=== PATIENT | female | born 1995 | race Caucasian/White ===

== ENCOUNTER 2019-01-15 14:40 | Emergency (ER) | payer SELFPAY ==
[2019-01-15] MEDS ORDERED: ONDANSETRON 4 MG/2 ML VIAL ONE (17:03)
[2019-01-15] MEDS ORDERED: FAMOTIDINE 20 MG/2 ML VIAL IV ONE (17:03)
[2019-01-15] MEDS ORDERED: MAGNE/ALUM HYDROXD 30 ML UCUP ONE (17:03)
[2019-01-15] MEDS ORDERED: LIDOCAINE VISCOUS 2% SOLN 15 ML UDC ONE (17:03)
[2019-01-15] MEDS ORDERED: METRONIDAZOLE 500mg IVPB 500 MG/100 ML BAG IV ONE (17:03)
[2019-01-15] MEDS ORDERED: ACETAMINOPHEN 500 MG TAB ONE (17:03)
[2019-01-15] MEDS ORDERED: NA CHLORIDE 0.9% 1,000 ML ONE (17:04)
[2019-01-15 17:29] LABS: Absolute Lymphocytes (CBC) 0.7 K/uL (0.7-4.9); Absolute Monocytes 0.6 K/uL (0.1-1.3); Absolute Neutrophil 3.5 K/uL (1.8-8.0); Basophils % 0.3 % (0-1.3); Eosinophils % 0.6 % (0-4.4); Hematocrit 39.3 % (36.0-45.0); Lymphocytes % 14.5 % (15.3-44.8); MPV 7.9 fL (7.6-11.3); RBC Red Blood Cell Count 4.96 M/uL (3.86-4.86)
[2019-01-15 17:47] LABS: Albumin 3.4 g/dL (3.4-5.0); Bilirubin Direct 0.2 mg/dL (0-0.2); Bilirubin Total 0.4 mg/dL (0.2-1.0); Potassium 3.4 mmol/L (3.5-5.1); Protein, Total 7.8 g/dL (6.4-8.2)
--- NOTE | 2019-01-15 18:43 | RAD REPORT ---
EXAM DESCRIPTION: US - Abdomen Exam Limited - 01/15/2019 6:36 pm CLINICAL HISTORY: RUQ Abdominal pain COMPARISON: No comparisons FINDINGS: The gallbladder demonstrates 6 mm polyp along the anterior aspect gallbladder. No shadowin g gallstone identified. No pericholecystic fluid or gallbladder wall thickening. The common bile duct is normal measuring 3 mm. The liver demonstrates no findings of intrahepatic biliary dilatation. IMPRESSION: 6 mm gallbladder polyp.
--- NOTE | 2019-01-15 19:12 | EDPHYS ---
Physician Documentation [facility] Name: Melody Maldonado Age: 23 yrs Sex: Female : 1995 Arrival Date: 01/15/2019 Time: 14:42 Bed 27 Private MD: Unknown, Unknown ED Physician Katiuska Stearns HPI: 01/15 16:48 This 23 yrs old Female presents to ER via Ambulatory with complaints of ma2 Nausea/Vomiting, Bloody Stools, Abdominal Cramping. 16:48 The patient presents to the emergency department with nausea, vomiting, diarrhea. ma2 Onset: The symptoms/episode began/occurred gradually, 3 day(s) ago. The symptoms are alleviated by food , supine position, prescription meds. Associated signs and symptoms: Pertinent negatives: diarrhea, fever. Severity of symptoms: At their worst the symptoms were mild in the emergency department the symptoms are unchanged. The patient has not experienced similar symptoms in the past. 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 - Social history:: Smoking status: Patient/guardian denies using tobacco, Patient uses Patient/guardian denies using alcohol, street drugs, The patient lives with family. - Ebola Screening: : No symptoms or risks identified at this time. - Family history:: not pertinent. ROS: 16:48 Constitutional: Negative for fever, chills, and weight loss. ma2 16:48 Abdomen/GI: Positive for nausea, vomiting, and diarrhea, Negative for constipation, bowel incontinence, acute changes. 16:48 All other systems are negative. Exam: 16:48 Constitutional: This is a well developed, well nourished patient who is awake, alert, ma2 and in no acute distress. Chest/axilla: Normal chest wall appearance and motion. Nontender with no deformity. No lesions are appreciated. Cardiovascular: Regular rate and rhythm with a normal S1 and S2. No gallops, murmurs, or rubs. Normal PMI, no JVD. No pulse deficits. Respiratory: Lungs have equal breath sounds bilaterally, clear to auscultation and percussion. No rales, rhonchi or wheezes noted. No increased work of breathing, no retractions or nasal flaring. Abdomen/GI: Soft, non-tender, with normal bowel sounds. No distension or tympany. No guarding or rebound. No evidence of tenderness throughout. MS/ Extremity: Pulses equal, no cyanosis. Neurovascular intact. Full, normal range of motion. Neuro: Awake and alert, GCS 15, oriented to person, place, time, and situation. Cranial nerves II-XII grossly intact. Motor strength 5/5 in all extremities. Sensory grossly intact. Cerebellar exam normal. Normal gait. Vital Signs: 14:53 BP 122 / 71; Pulse 101; Resp 16; Temp 98.9; Pulse Ox 99% on R/A; Pain 7/10; hb 15:42 BP 110 / 69; Pulse 102; Resp 19; Pulse Ox 100% on R/A; ca1 16:45 BP 109 / 72; Pulse 99; Resp 19; Pulse Ox 99% on R/A; ca1 17:30 BP 105 / 69; Pulse 95; Resp 19; Pulse Ox 99% on R/A; ca1 18:42 BP 98 / 61; Pulse 93; Resp 16; Temp 98.9; Pulse Ox 100% ; lt1 19:20 BP 102 / 65; Pulse 90; Resp 19; Pulse Ox 99% on R/A; ca1 MDM: 16:40 Patient medically screened. [facility] 16:48 Differential diagnosis: gastritis, cholecystitis, viral gastroenteritis, ma2 gastroenteritis. 19:10 Data reviewed: vital signs, nurses notes. [facility] 19:10 Data reviewed: lab test result(s). Counseling: I had a detailed discussion with the ky2 patient and/or guardian regarding: the historical points, exam findings, and any diagnostic results supporting the discharge/admit diagnosis, the presence of at least one elevated blood pressure reading (>120/80) during this emergency department visit, the need for outpatient follow up. Response to treatment: the patient's symptoms have markedly improved after treatment. ED course: low risk pancreatitis per kristan score needs outpatient rx. 01/15 16:48 Order name: Basic Metabolic Panel; Complete Time: 17:52 [facility] 01/15 16:48 Order name: CBC with Diff; Complete Time: 17:52 [facility] 01/15 16:48 Order name: Creatinine for Radiology; Complete Time: 17:52 [facility] 01/15 16:48 Order name: Hepatic Function; Complete Time: 17:52 [facility] 01/15 16:48 Order name: Lipase; Complete Time: 17:52 [facility] 01/15 16:48 Order name: Stool Culture [facility] 01/15 16:48 Order name: Fecal Leukocyte Stain [facility] 01/15 16:48 Order name: CDIFF [facility] 01/15 17:54 Order name: US Abdomen Limited; Complete Time: 19:10 [facility] 01/15 18:53 Order name: Urine Dipstick--Ancillary (enter results) 01/15 18:53 Order name: Urine --Ancillary (enter results) 01/15 16:48 Order name: IV Saline Lock; Complete Time: 17:00 [facility] 01/15 16:48 Order name: Labs collected and sent; Complete Time: 17:00 ky2 Administered Medications: 16:52 Drug: Tylenol 1000 mg Route: PO; ca1 19:09 Follow up: Response: No adverse reaction ca1 16:52 Drug: GI Cocktail without - (Maalox Suspension 30 ml, Lidocaine Liquid 2 % 15 ca1 ml) Route: PO; 19:10 Follow up: Response: No adverse reaction; Pain is decreased ca1 16:55 Drug: NS 0.9% 1000 ml Route: IV; Rate: 1 bolus; Site: right antecubital; ca1 19:09 Follow up: IV Status: Completed infusion ca1 16:58 Drug: Pepcid 20 mg Route: IVP; Site: right antecubital; ca1 19:09 Follow up: Response: No adverse reaction ca1 17:00 Drug: Zofran 4 mg Route: IVP; Site: right antecubital; ca1 19:09 Follow up: Response: No adverse reaction; Nausea is decreased ca1 17:30 Drug: Flagyl 500 mg Volume: 100 ml; Route: IVPB; Rate: 200 ml/hr; Infused Over: 30 ca1 mins; Site: right antecubital; Disposition: 01/15/19 19:11 Discharged to Home. Impression: Acute pancreatitis. - Condition is Stable. - Discharge Instructions: Acute Pancreatitis. - Prescriptions for Tylenol- Codeine #3 300-30 mg Oral Tablet - take 2 tablet by ORAL route every 6 hours As needed; 30 tablet. - Medication Reconciliation Form, Thank You Letter, Antibiotic Education, Prescription Opioid Use form. - Follow up: Private Physician; When: Tomorrow; Reason: Continuance of care. Signatures: Dispatcher [employer] Ruma Lyon, RN RN Katiuska Austin MD MD ma2 Marti Hernandez RN RN ca1 Corrections: (The following items were deleted from the chart) 19:35 19:11 01/15/2019 19:11 Discharged to Home. Impression: Acute pancreatitis. Condition is ca1 Stable. Forms are Medication Reconciliation Form, Thank You Letter, Antibiotic Education, Prescription Opioid Use. Follow up: Private Physician; When: Tomorrow; Reason: Continuance of care. ma2
--- NOTE | 2019-01-15 19:12 | ER ---
Nurse's Notes [facility] Name: Melody Maldonado Age: 23 yrs Sex: Female : 1995 Arrival Date: 01/15/2019 Time: 14:42 Bed 27 Private MD: Unknown, Unknown Diagnosis: Acute pancreatitis Presentation: 01/15 14:52 Presenting complaint: N/V/D x 3 days, blood streaked diarrhea today. Not tolerating hb fluids. Denies fever. Transition of care: patient was not received from another setting of care. Onset of symptoms was January 15, 2019. Risk Assessment: Do you want to hurt yourself or someone else? Patient reports no desire to harm self or others. Care prior to arrival: None. 14:52 Method Of Arrival: Ambulatory hb 14:52 Acuity: ERICH 3 hb 16:50 Initial Sepsis Screen: Does the patient meet any 2 criteria? No. Patient's initial ca1 sepsis screen is negative. Does the patient have a suspected source of infection? Yes: Acute abdominal pain. 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 - Social history:: Smoking status: Patient/guardian denies using tobacco, Patient uses Patient/guardian denies using alcohol, street drugs, The patient lives with family. - Ebola Screening: : No symptoms or risks identified at this time. - Family history:: not pertinent. Screenin:40 Abuse screen: Denies threats or abuse. Denies injuries from another. Nutritional ca1 screening: No deficits noted. Tuberculosis screening: No symptoms or risk factors identified. 16:40 Fall Risk IV access (20 points). ca1 Assessment: 16:40 General: Appears in no apparent distress. comfortable, Behavior is calm, cooperative, ca1 appropriate for age. Pain: Complains of pain in right upper quadrant and right lower quadrant Pain radiates to right mid back and right low back Pain currently is 7 out of 10 on a pain scale. Quality of pain is described as aching, crampy. Neuro: Level of Consciousness is awake, alert, obeys commands, Oriented to person, place, time, situation. Cardiovascular: Heart tones S1 S2 present Capillary refill < 3 seconds Patient's skin is warm and dry. Respiratory: Airway is patent Respiratory effort is even, unlabored, Respiratory pattern is regular, symmetrical, Breath sounds are clear bilaterally. GI: Abdomen is round non-distended, Bowel sounds present X 4 quads. Abd is soft X 4 quads Abdomen is tender to palpation X 4 quads. GI: Reports diarrhea, nausea, vomiting. : No deficits noted. No signs and/or symptoms were reported regarding the genitourinary system. EENT: No deficits noted. No signs and/or symptoms were reported regarding the EENT system. Derm: Skin is intact, is healthy with good turgor, Skin is pink, warm \T\ dry. Musculoskeletal: Circulation, motion, and sensation intact. Capillary refill < 3 seconds. 17:35 Reassessment: Patient appears in no apparent distress at this time. Patient and/or ca1 family updated on plan of care and expected duration. Pain level reassessed. Patient is alert, oriented x 3, equal unlabored respirations, skin warm/dry/pink. 18:30 Reassessment: Patient appears in no apparent distress at this time. Patient and/or ca1 family updated on plan of care and expected duration. Pain level reassessed. Patient is alert, oriented x 3, equal unlabored respirations, skin warm/dry/pink. 19:20 Reassessment: Patient appears in no apparent distress at this time. Patient and/or ca1 family updated on plan of care and expected duration. Pain level reassessed. Patient is alert, oriented x 3, equal unlabored respirations, skin warm/dry/pink. Vital Signs: 14:53 BP 122 / 71; Pulse 101; Resp 16; Temp 98.9; Pulse Ox 99% on R/A; Pain 7/10; hb 15:42 BP 110 / 69; Pulse 102; Resp 19; Pulse Ox 100% on R/A; ca1 16:45 BP 109 / 72; Pulse 99; Resp 19; Pulse Ox 99% on R/A; ca1 17:30 BP 105 / 69; Pulse 95; Resp 19; Pulse Ox 99% on R/A; ca1 18:42 BP 98 / 61; Pulse 93; Resp 16; Temp 98.9; Pulse Ox 100% ; lt1 19:20 BP 102 / 65; Pulse 90; Resp 19; Pulse Ox 99% on R/A; ca1 ED Course: 14:42 Patient arrived in ED. ag5 14:43 Unknown, Unknown is Private Physician. ag5 14:53 Triage completed. hb 14:53 Arm band placed on. hb 16:40 Katiuska Stearns MD is Attending Physician. ma2 16:40 Patient has correct armband on for positive identification. Placed in gown. Bed in low ca1 position. Call light in reach. Side rails up X 1. Pulse ox on. NIBP on. Warm blanket given. 16:40 Inserted saline lock: 20 gauge in right antecubital area, using aseptic technique. ca1 Blood collected. 17:09 Marti Hernandez RN is Primary Nurse. ca1 18:36 US Abdomen Limited In Process Unspecified. EDMS 18:36 Ultrasound completed. Patient moved back from ultrasound. hr 19:30 No provider procedures requiring assistance completed. IV discontinued, intact, ca1 bleeding controlled, No redness/swelling at site. Pressure dressing applied. Administered Medications: 16:52 Drug: Tylenol 1000 mg Route: PO; ca1 19:09 Follow up: Response: No adverse reaction ca1 16:52 Drug: GI Cocktail without - (Maalox Suspension 30 ml, Lidocaine Liquid 2 % 15 ca1 ml) Route: PO; 19:10 Follow up: Response: No adverse reaction; Pain is decreased ca1 16:55 Drug: NS 0.9% 1000 ml Route: IV; Rate: 1 bolus; Site: right antecubital; ca1 19:09 Follow up: IV Status: Completed infusion ca1 16:58 Drug: Pepcid 20 mg Route: IVP; Site: right antecubital; ca1 19:09 Follow up: Response: No adverse reaction ca1 17:00 Drug: Zofran 4 mg Route: IVP; Site: right antecubital; ca1 19:09 Follow up: Response: No adverse reaction; Nausea is decreased ca1 17:30 Drug: Flagyl 500 mg Volume: 100 ml; Route: IVPB; Rate: 200 ml/hr; Infused Over: 30 ca1 mins; Site: right antecubital; Outcome: 19:11 Discharge ordered by . ma2 19:30 Discharged to home ambulatory. ca1 19:30 Condition: stable 19:30 Discharge instructions given to patient, Instructed on discharge instructions, follow up and referral plans. medication usage, Demonstrated understanding of instructions, follow-up care, medications, Prescriptions given X 1. 19:35 Patient left the ED. ca1 Signatures: Dispatcher [employer] EDMS Idania Correa Heather, RN RN Katiuska Stearns MD MD ma2 Marti Hernandez RN RN ca1 Guadalupe, Yovany 5 Milly Kimball 1
[2019-01-15 19:52] LABS: Urine Blood TRACE (NEG); Urine Glucose NEGATIVE (NEG); Urine Protein 2+ (NEG)
== END 2019-01-15 19:35 | disposition home or self-care (01) ==
LOC: ER 14:40
DX: K85.90 Acute pancreatitis without necrosis or infection, unspecified (principal); Z91.040 Latex allergy status; Z91.048 Other nonmedicinal substance allergy status
CPT/HCPCS: 36415; 76705; 80048; 80076; 81003; 81025; 83690; 85025; 87045; 87046; 87493; 89055; 96361; 96374; 96375; 99284; J2405; J7030

== ENCOUNTER 2019-05-22 11:04 | Emergency (ER) | payer SELFPAY ==
--- OUTSIDE RECORDS SUMMARY | 2019-05-22 11:06 | XMS REPORT | Continuity of Care Document ---
:1995 Author Organization [facility] Address [address] [place] [address] Phone Unavailable Care Team Providers Name Role Phone PHYSICIAN, NO Primary Care Physician Unavailable Insurance Providers Guarantor Bhanu Maldonado Address [address] [place] [phone] Email [email or web address] Payer Medicaid Policy Number [id number] Subscriber's Name Bhanu Maldonado Relationship Self / Same As Patient Group Number HTW Group Name HTW Advance Directives Directive Response Recorded Date/Time Advance Directive on File No 04/01/19 9:57pm Patient/Family Given Education Material R/T Y - 04/01/19...MK 04/02/19 1: 28am Directives? Chief Complaint and Reason for Visit Chief Complaint Abdominal/GI/Nausea/Vomiting Reason for Visit Abdominal pain Problems Active ProblemsNo active problem information available. Past Problems Medical Problem Onset Date Status Abdominal pain Unknown Acute UTI (urinary tract infection) during Unknown Acute Medications No medication information available. Social History Smoking Status Start Date Stop Date Never smoker Hospital Discharge Instructions No hospital discharge instruction information available. Plan of Care Discharge Date 04/02/19 3:05am Instructions/Education Provided Abdominal Pain During , [id number] Forms Provided Portal Welcome Letter Prescriptions See Medication Section Referrals NO PHYSICIAN Additional Instructions/Education CONTINUE ORAL FLUIDS FOLLOW UP WITH RUBY DEVELOPER Functional Status No functional status information available. Allergies, Adverse Reactions, Alerts Allergen Type Severity Reaction Status Last Updated Latex ([id number]) Allergy Unknown RASH Active 04/11/18 Immunizations No immunization information available. Vital Signs Acute Vital Signs Vital Response Date/Time Blood Pressure 97/60 mm Hg 04/02/2019 3:14am Pulse Pulse Rate (adult) 77 beats per minute (60 - 100) 04/02/2019 3:14am Respiratory Rate 18 breaths per minute (10 - 24) 04/02/2019 3:14am Temperature Source Oral 04/02/2019 3:14am Height 5 ft 2 in 04/01/2019 9:57pm Weight 158 lb 04/01/2019 9:57pm Body Mass Index 28.9 kg/m^2 04/01/2019 9:57pm Results Laboratory Results Test Name Result Units Flags Reference Collection Result Comments Date/Time Date/Time White Blood Count 7.7 K/ul 4.0-11.5 04/01/2019 04/01/2019 10:21pm 10:29pm Red Blood Count 4.65 M/ul 3.80-5.20 04/01/2019 04/01/2019 10:21pm 10:29pm Hemoglobin 12.2 g/dl 10.5-15.7 04/01/2019 04/01/2019 10:21pm 10:29pm Hematocrit 38.4 % 34.0-50.0 04/01/2019 04/01/2019 10:21pm 10:29pm Mean Corpuscular 82.6 fl 78-98 04/01/2019 04/01/2019 Volume 10:21pm 10:29pm Mean Corpuscular 26.3 pg 26.2-33.4 04/01/2019 04/01/2019 Hemoglobin 10:21pm 10:29pm Mean Corpuscular 31.9 g/dl 31.5-36.2 04/01/2019 04/01/2019 Hemoglobin Concent 10:21pm 10:29pm Red Cell 12.6 % 11.5-15.5 04/01/2019 04/01/2019 Distribution Width 10:21pm 10:29pm Platelet Count 308 K/ul 137-338 04/01/2019 04/01/2019 10:21pm 10:29pm Mean Platelet 6.6 fl L 8.4-11.8 04/01/2019 04/01/2019 Volume 10:21pm 10:29pm Neutrophils (%) 65.0 % 44.4-80.1 04/01/2019 04/01/2019 (Auto) 10:21pm 10:29pm Lymphocytes (%) 25.9 % 10.0-50.0 04/01/2019 04/01/2019 (Auto) 10:21pm 10:29pm Monocytes (%) 7.0 % 3.6-12.0 04/01/2019 04/01/2019 (Auto) 10:21pm 10:29pm Eosinophils (%) 1.6 % 0.0-5.4 04/01/2019 04/01/2019 (Auto) 10:21pm 10:29pm Basophils (%) 0.6 % 0.0-0.79 04/01/2019 04/01/2019 (Auto) 10:21pm 10:29pm Urine Color YELLOW 04/01/2019 04/01/2019 10:10pm 10:22pm Urine Appearance CLEAR CLEAR 04/01/2019 04/01/2019 10:10pm 10:22pm Urine Glucose NEGATIVE NEGATIVE 04/01/2019 04/01/2019 10:10pm 10:22pm Urine Bilirubin NEGATIVE NEGATIVE 04/01/2019 04/01/2019 10:10pm 10:22pm Urine Ketones NEGATIVE NEGATIVE 04/01/2019 04/01/2019 10:10pm 10:22pm Urine Specific 1.031 H 1.003-1.03 04/01/2019 04/01/2019 [place]rah 0 10:10pm 10:22pm Urine Blood NEGATIVE NEGATIVE 04/01/2019 04/01/2019 10:10pm 10:22pm Urine pH 6.000 5-9 04/01/2019 04/01/2019 10:10pm 10:22pm Urine Protein TRACE NEGATIVE 04/01/2019 04/01/2019 10:10pm 10:22pm Urine Urobilinogen NORMAL mg/dL 0.2-1.0 04/01/2019 04/01/2019 10:10pm 10:22pm Urine Nitrate NEGATIVE NEGATIVE 04/01/2019 04/01/2019 10:10pm 10:22pm Urine Leukocyte 2+ H NEGATIVE 04/01/2019 04/01/2019 Esterase 10:10pm 10:22pm Urine RBC 1-5 /hpf 0-5 04/01/2019 04/01/2019 10:10pm 10:21pm Urine WBC 6-10 /hpf H 0-5 04/01/2019 04/01/2019 10:10pm 10:21pm Urine Epithelial 1-5 /hpf 0-5 04/01/2019 04/01/2019 Cells 10:10pm 10:21pm Urine Bacteria TRACE /hpf None 04/01/2019 04/01/2019 Detect 10:10pm 10:21pm Urine Casts 6-10 /lpf H None 04/01/2019 04/01/2019 Detect 10:10pm 10:21pm Urine Culture YES 04/01/2019 04/01/2019 Reflexed 10:10pm 10:21pm Random Glucose 90 mg/dL 74-106 04/01/2019 04/01/2019 10:21pm 10:50pm Blood Urea 15 mg/dL 6-04/01/2019 04/01/2019 Nitrogen 10:21pm 10:50pm Serum Osmolality 278 L 280-300 04/01/2019 04/01/2019 10:21pm 10:50pm Creatinine 0.7 mg/dL 0.50-0.90 04/01/2019 04/01/2019 10:21pm 10:50pm Glomerular > 60.00 04/01/2019 04/01/2019 GFR RESULTS ARE REPORTED IN mL/min/1.73m2. Filtration Rate 10:21pm 10:50pm Calc Normal GFR: >60mL/min Moderately decreased GFR: 30-59 mL/min Severely decreased GFR: 15-29 mL/min Kidney Failure (or Dialysis): <15 mL/min The calculated eGFR is not valid for patients younger than 18 years or older than 75 years. BUN/Creatinine 21.4 H 12-20 04/01/2019 04/01/2019 Ratio 10:21pm 10:50pm Sodium Level 139 mmol/L 135-145 04/01/2019 04/01/2019 10:21pm 10:50pm Potassium Level 3.7 mmol/L 3.5-5.2 04/01/2019 04/01/2019 10:21pm 10:50pm Chloride Level 104 mmol/L 98-108 04/01/2019 04/01/2019 10:21pm 10:50pm Carbon Dioxide 25 mmol/L 21-32 04/01/2019 04/01/2019 Level 10:21pm 10:50pm Anion Gap 13.7 mEq/L 12-04/01/2019 04/01/2019 10:21pm 10:50pm Calcium Level 9.5 mg/dL 8.6-10.0 04/01/2019 04/01/2019 10:21pm 10:50pm Total Protein 7.3 g/dL 6.6-8.7 04/01/2019 04/01/2019 10:21pm 10:50pm Albumin 4.4 g/dL 3.5-5.2 04/01/2019 04/01/2019 10:21pm 10:50pm Globulin 2.9 gm/dL 04/01/2019 04/01/2019 10:21pm 10:50pm Albumin/Globulin 1.5 >1.0 04/01/2019 04/01/2019 Ratio 10:21pm 10:50pm Total Bilirubin < 0.3 mg/dL 0.0-1.2 04/01/2019 04/01/2019 10:21pm 10:50pm Aspartate Amino 11 U/L L 15-32 04/01/2019 04/01/2019 Transf (AST/SGOT) 10:21pm 10:50pm Alanine 9 U/L 0-33 04/01/2019 04/01/2019 Aminotransferase 10:21pm 10:50pm (ALT/SGPT) Lipase 34 U/L 13-60 04/01/2019 04/01/2019 10:21pm 10:50pm Total Alkaline 63 U/L 35-105 04/01/2019 04/01/2019 Phosphatase 10:21pm 10:50pm Beta HCG, 3921.0 mIU/mL H 0-5 04/01/2019 04/01/2019 REFERENCE RANGES Quantitative 10:21pm 10:52pm NORMAL: NON- PREMENOPAUSAL POST-MENOPAUSAL <7 Weeks of Gestation Expected Result mIU/mL 3 5.8 - 71.2 4 9.5 - 750 5 217 - 7,138 6 158 - 31,795 7 3697 - 163,563 8 32,065 - 149,571 9 63,803 - 151,410 10 46,509 - 186,977 12 27,832 - 210,612 14 13,950 - 62,530 15 12,039 - 70,971 16 9,040 - 56,451 17 8,175 - 55,868 18 8,099 - 58,176 Procedures Procedure Status Date Provider(s) Transvaginal obstetrical ultrasound Completed 04/02/19 XAVIER MORROW Encounters Encounter Location Arrival/Admit Date Discharge/Depart Date Attending Provider Departed [place] 04/01/19 9:03pm 04/02/19 3:05am XAVIER MORROW Emergency Room [facility] Recent Diagnosis
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
--- OUTSIDE RECORDS SUMMARY | 2019-05-22 11:06 | XMS REPORT | Encounter Summary ---
:1995 Author Reason for Visit OB Intake Instructions 1. Amenorrhea 2. screening HIV (1+2) Ab screen, serum RPR (rapid plasma reagin), serum HBsAg (hepatitis B surface Ag), serum CBC w/ auto diff abo group + rh type, blood drug screen, urine culture, urine antibody screen, serum or plasma rubella Ab, titer, serum Discussion Note: None recorded.Patient educational handouts: No information available. Plan of Care Reminders Provider Appointments New OB Shantel Cantu Patient 05/14/2019 MD Edi 10:30AM OB Sono Sonogram 05/14/2019 10:30AM Lab HIV (1+2) Ab [facility] Screen, Serum 04/19/2019 [facility] (Lab) RPR (Rapid [facility] Plasma Reagin), Serum 04/19/2019 [facility] (Lab) HBsAg [facility] (Hepatitis B Surface 04/19/2019 [facility] (Lab) Ag), Serum CBC W/ Auto [facility] Diff 04/19/2019 [facility] (Lab) Abo Group + [facility] Rh Type, Blood 04/19/2019 [facility] (Lab) Drug Screen, [facility] Urine 04/19/2019 [facility] (Lab) Culture, [facility] Urine 04/19/2019 [facility] (Lab) Antibody [facility] Screen, Serum or 04/19/2019 [facility] (Lab) Plasma Rubella Ab, [facility] Titer, Serum 04/19/2019 [facility] (Lab) Referral None recorded. Procedures None recorded. Surgeries None recorded. Imaging None recorded. Medications No Medications Reported Medications Administered None recorded. Vitals Height Weight BMI Blood Pressure 5 ft 2 in 159.6 lbs 29.2 kg/m2 132/73 mm[Hg] Lab Results None recorded. Allergies Code Code System Name Reaction Severity Status Onset Latex, Active Natural Rubber Problems Name Status Onset Date Source Active 04/19/2019 Procedures None recorded. Vaccine List None recorded. Social History Smoking Status Never Smoker Past Encounters 04/19/2019 Amenorrhea; Screening Shantel Daley MD: [address], [address], [place] [address], Ph. [phone] History of Present Illness Note: ob intake Review of Systems ACCOUNT SOLUTIONS ANALYST ROS Reported By: Patient Constitutional: Constitutional: no fatigue, no fever, no significant weight gain, no significant weight loss Skin: Skin: no abnormal moles, no rashes Eyes: Eyes: no irritation, no vision changes ENMT: ENMT: no hearing loss, no ear pain, no nose/sinus problems, no sore throat, no snoring, no dry mouth, no mouth ulcers Respiratory: Respiratory: no dyspnea / shortness of breath, no cough, no sputum production, no hemoptysis, no wheezing Cardiovascular: Cardiovascular: no chest pain, no palpitations, no orthopnea Gastrointestinal: Gastrointestinal: no heartburn, no dysphagia, no nausea, no vomiting, no abdominal pain, no bowel movement changes, no diarrhea, no constipation, no rectal bleeding Genitourinary: Genitourinary: no hematuria, no abnormal bleeding, no flank pain, no trouble urinating, no incontinence, no rash, no lesion, no discharge, no vaginal odor, no vaginal itching Endocrine: Menstrual: no menstrual problems, no PMDD symptoms. Menopausal: no menopausal symptoms. Sexual: no sexual problems Musculoskeletal: Musculoskeletal: no muscle aches, no muscle weakness, no arthralgias/joint pain, no back pain Neurological: Neurologic: no headaches, no dizziness, no LOC, no weakness, no numbness, no seizures Psychological: Psych: no depression, no alcoholism, no sleep disturbances Physical Exam None recorded.
[2019-05-22] MEDS ORDERED: NA CHLORIDE 0.9% 1,000 ML ONE (12:31)
[2019-05-22 12:38] LABS: Basophils % 0.3 % (0-1.3); Hematocrit 37.6 % (36.0-45.0); Lymphocytes % 13.6 % (15.3-44.8); MPV 8.3 fL (7.6-11.3); RBC Red Blood Cell Count 4.59 M/uL (3.86-4.86)
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
[2019-05-22 12:52] LABS: Urine Blood NEGATIVE (NEG); Urine Glucose NEGATIVE (NEG); Urine Protein NEGATIVE (NEG)
[2019-05-22 13:24] LABS: BUN Blood Urea Nitrogen 9 mg/dL (7-18); Bicarbonate 27 mmol/L (21-32); Glucose Level 94 mg/dL (74-106); HCG, Quantitative 45949 mIU/mL (1-3); Potassium 3.7 mmol/L (3.5-5.1); Sodium Level 140 mmol/L (136-145)
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
[2019-05-22] MEDS ORDERED: LIDOCAINE 1% MPF 5 ML VIAL ONE (14:01)
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
[2019-05-22] MEDS ORDERED: CEFTRIAXONE/SWI 1gm 1 GM/10 ML SYR ONE (14:19)
== END 2019-05-22 14:37 | disposition home or self-care (01) ==
LOC: ER 11:04
PROC: 0CQ1XZZ Repair Lower Lip, External Approach (ICD-10-PCS; principal; 2019-05-22)
DX: O26.891 Other specified pregnancy related conditions, first trimester (principal); S01.512A Laceration without foreign body of oral cavity, initial encounter; Z3A.13 13 weeks gestation of pregnancy; V49.9XXA Car occupant (driver) (passenger) injured in unspecified traffic accident, initial encounter; Z91.040 Latex allergy status
CPT/HCPCS: 36415; 76815; 80048; 81003; 81025; 84702; 85025; 86900; 86901; 96361; 96365; 99284; J0696; J7030

== ENCOUNTER 2020-10-20 18:44 | Emergency (ER) | payer OTHER ==
--- OUTSIDE RECORDS SUMMARY | 2020-10-20 18:48 | XMS REPORT | Continuity of Care Document ---
:1995 Author Organization [facility] t Address [facility] Roberto Villarreal. [address] [place] [address] Care Team Providers Name Role Phone Unavailable Unavailable Unavailable Problems Condition Condition Condition Status Onset Resolution Last Treating Co mments Source Name Details Category Date Date Treatment Clinician Date Secondary Secondary Problem Active [facility] dysmenorrh Dysmenorrh 05-21 da ea ea 00:00: Medical 00 Group Intermenst Intermenst Problem Active [facility] rual rual 05-21 da bleeding - Bleeding - 00:00: Me dical irregular Irregular 00 Grou p Initial Initial Problem Active [facility] prescripti Prescripti 05-21 da on of oral on of Oral 00:00: Me dical contracept Contracept 00 Gr oup ion ion Venereal Venereal Problem Active 0 [facility] disease Disease 05-21 da screening Screening 00:00: Medi haroon 00 Group Medication Medication Problem Active M [facility] side Side 05-21 da effects Effects 00:00: Medical present Present 00 Group Atypical Atypical Problem Active [facility] squamous Squamous 7-30 da cells of Cells of 00:00: Medica l undetermin Undetermin 00 Gr oup ed ed significan Significan ce ce Allergies, Adverse Reactions, Alerts Allergy Allergy Status Severity Reaction(s) Onset Inactive Treating Comm ents Source Name Type Date Date Clinician LATEX, Allergy Active [facility] NATURAL to da RUBBER substanc Medical e Group Social History Smoking Status Start Date Stop Date Source Never Smoker [facility] Medications Ordered Filled Start Stop Current Ordering Indication Dosage Frequency Signature Comments Components Source Medication Medication Date Date Medication? Clinician (SIG) Name Name amoxicillin amoxicillin No amoxicilli [facility] 875 mg 875 mg n 875 mg da tablet Take tablet Take tablet Medical 1 tablet 1 tablet Take 1 Group every 12 every 12 tablet hours by hours by every 12 oral route oral route hours by for 10 for 10 oral route days. days. for 10 days. clotrimazol clotrimazol No clotrimazo [facility] e 10 mg e 10 mg le 10 mg da gage Take gage Take gage Medical 1 tablet 5 1 tablet 5 Take 1 G roup times a day times a day tablet 5 by oral by oral times a route for route for day by 14 days. 14 days. oral route for 14 days. ferrous ferrous No 1 Q1D ferrous [facility] gluconate gluconate gluconate da 240 mg (27 240 mg (27 240 mg (27 Medical mg iron) mg iron) mg iron) Hai up tablet Take tablet Take tablet 1 tablet 1 tablet Take 1 every day every day tablet by oral by oral every day route. route. by oral route. ibuprofen ibuprofen No 1 TID ibuprofen [facility] 800 mg 800 mg 800 mg da tablet Take tablet Take tablet Medical 1 tablet 3 1 tablet 3 Take 1 G roup times a day times a day tablet 3 by oral by oral times a route. route. day by oral route. Lo Loestrin Lo Loestrin No 1 Q1D Lo M [facility] Fe 1 mg-10 Fe 1 mg-10 Loestrin da mcg (24)/10 mcg (24)/10 Fe 1 mg-10 Medical mcg (2) mcg (2) mcg Group tablet Take tablet Take (24)/10 1 tablet 1 tablet mcg (2) every day every day tablet by oral by oral Take 1 route. route. tablet every day by oral route. Vitafol Vitafol No 1capsul Q1D Vitafol [facility] Ultra 29 mg Ultra 29 mg e(s) Ultra 29 da iron-1 iron-1 mg iron-1 Medica l mg-200 mg mg-200 mg mg-200 mg Group capsule capsule capsule Take 1 Take 1 Take 1 capsule capsule capsule every day every day every day by oral by oral by oral route. route. route. Vital Signs Vital Name Observation Time Observation Value Comments Source BP Diastolic 2020-05-21 00:00:00 69 mm[Hg] [facility] Height 2020-05-21 00:00:00 62 [in_i] [facility] BMI (Body Mass 2020-05-21 00:00:00 30.9 kg/m2 [facility] Medical Index) Group BP Systolic 2020-05-21 00:00:00 105 mm[Hg] [facility] Body Weight 2020-05-21 00:00:00 169 [lb_av] [facility] BP Diastolic 2019-12-06 00:00:00 67 mm[Hg] [facility] Height 2019-12-06 00:00:00 62 [in_i] [facility] BMI (Body Mass 2019-12-06 00:00:00 31.1 kg/m2 [facility] Medical Index) Group BP Systolic 2019-12-06 00:00:00 99 mm[Hg] [facility] Body Weight 2019-12-06 00:00:00 170.1 [lb_av] [facility] BP Diastolic 2019-11-12 00:00:00 74 mm[Hg] [facility] Height 2019-11-12 00:00:00 62 [in_i] [facility] BP Systolic 2019-11-12 00:00:00 124 mm[Hg] [facility] BP Diastolic 2019-11-05 00:00:00 75 mm[Hg] [facility] Height 2019-11-05 00:00:00 62 [in_i] [facility] BMI (Body Mass 2019-11-05 00:00:00 35.5 kg/m2 [facility] Medical Index) Group BP Systolic 2019-11-05 00:00:00 119 mm[Hg] [facility] Body Weight 2019-11-05 00:00:00 194 [lb_av] [facility] BP Diastolic 2019-10-29 00:00:00 76 mm[Hg] [facility] Height 2019-10-29 00:00:00 62 [in_i] [facility] BMI (Body Mass 2019-10-29 00:00:00 35.3 kg/m2 [facility] Medical Index) Group BP Systolic 2019-10-29 00:00:00 118 mm[Hg] [facility] Body Weight 2019-10-29 00:00:00 193 [lb_av] [facility] Height 2019-10-15 00:00:00 62 [in_i] [facility] BMI (Body Mass 2019-10-15 00:00:00 34.1 kg/m2 [facility] Medical Index) Group Body Weight 2019-10-15 00:00:00 186.4 [lb_av] [facility] BP Diastolic 2019-10-08 00:00:00 72 mm[Hg] [facility] Height 2019-10-08 00:00:00 62 [in_i] [facility] BMI (Body Mass 2019-10-08 00:00:00 33.3 kg/m2 [facility] Medical Index) Group BP Systolic 2019-10-08 00:00:00 117 mm[Hg] [facility] Body Weight 2019-10-08 00:00:00 181.9 [lb_av] [facility] BP Diastolic 2019-09-03 00:00:00 74 mm[Hg] [facility] Height 2019-09-03 00:00:00 62 [in_i] [facility] BMI (Body Mass 2019-09-03 00:00:00 [facility]2 [facility] BP Systolic 2019-09-03 00:00:00 116 mm[Hg] [facility] Body Weight 2019-09-03 00:00:00 176.3 [lb_av] [facility] BP Diastolic 2019-08-06 00:00:00 69 mm[Hg] [facility] Height 2019-08-06 00:00:00 62 [in_i] [facility] BMI (Body Mass 2019-08-06 00:00:00 31.1 kg/m2 [facility] Medical Index) Group BP Systolic 2019-08-06 00:00:00 113 mm[Hg] [facility] Body Weight 2019-08-06 00:00:00 169.8 [lb_av] [facility] BP Diastolic 2019-07-09 00:00:00 56 mm[Hg] [facility] Height 2019-07-09 00:00:00 62 [in_i] [facility] BMI (Body Mass 2019-07-09 00:00:00 29.8 kg/m2 [facility] Medical Index) Group BP Systolic 2019-07-09 00:00:00 99 mm[Hg] [facility] Body Weight 2019-07-09 00:00:00 162.8 [lb_av] [facility] BP Diastolic 2019-06-11 00:00:00 68 mm[Hg] [facility] Height 2019-06-11 00:00:00 62 [in_i] [facility] BMI (Body Mass 2019-06-11 00:00:00 29.6 kg/m2 [facility] Medical Index) Group BP Systolic 2019-06-11 00:00:00 123 mm[Hg] [facility] Body Weight 2019-06-11 00:00:00 161.7 [lb_av] [facility] BP Diastolic 2019-05-14 00:00:00 68 mm[Hg] [facility] Height 2019-05-14 00:00:00 62 [in_i] [facility] BP Systolic 2019-05-14 00:00:00 100 mm[Hg] [facility] Body Weight 2019-05-14 00:00:00 162 [lb_av] [facility] BP Diastolic 2019-04-19 00:00:00 73 mm[Hg] [facility] Height 2019-04-19 00:00:00 62 [in_i] [facility] BMI (Body Mass 2019-04-19 00:00:00 29.2 kg/m2 [facility]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 BP Systolic 2019-04-19 00:00:00 132 mm[facility]Hg[facility] Body Weight 2019-04-19 00:00:00 159.6 [lb_av] [facility] Procedures Procedure Date / Time Performing Clinician Source Performed Section (Surg) 2019-11-14 00:00:00 [facility], [facility], limited [facility] 2019-11-05 [facility], [facility] 2019-10-29 00:00:00 [facility] US, obstetric, limited 2019-10-15 00:00:00 [facility] US, obstetric, limited 2019-10-08 00:00:00 [facility] ord Medical Group ULTRASOUND REPEAT 2019-09-03 00:00:00 [facility] US, obstetric, limited 2019-06-11 00:00:00 [facility] ord Medical [facility] ULTRASOUND, 2019-06-11 00:00:00 [facility] Medical UTERUS REAL TIME WITH Group IMAGE DOC, AND MATERNAL EVAL PLUS DETAILED ANATOMIC EXAMINATION, TRANSABDOMINAL APPROACH; SINGLE OR FIRST GESTATION US, obstetric, limited 2019-05-14 00:00:00 [facility] Plan of Care Planned Activity Planned Date Details Comments Source Diagnostic Test 2020-05-21 urinalysis, [facility] P[facility] 00:00:00 dipstick [code = Group urinalysis, dipstick] Diagnostic Test 2020-05-21 test, [facility] Pending 00:00:00 urine [code = Group test, urine] Diagnostic Test 2020-05-21 CT + NG + TV, DNA, [facility] 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 [phone] 2020-02-27 2020-02-27 Wanda AGUILAR [place] - [id number] [facility] 00:00:00 00:00:00 Asha Bland [facility] Medical DESIGN QUALITY ENGINEER: [address] [place] [phone] , Ph. 2020-01-29 2020-01-29 Mine NAYAK [place] - [id number] [facility] 00:00:00 00:00:00 Discovery paco Lennno DESIGN QUALITY ENGINEER: [address] [place] [phone] , Ph. 2019-12-06 2019-12-06 Matthew NAYAK [place] - [id number] [facility] 00:00:00 00:00:00 Discovery paco Kumar MD: [address] [place] [address] [address], [place] [address] , Ph. [phone] 2019-11-12 2019-11-12 Matthew NAYAK [place] - [id number] [facility] 00:00:00 00:00:00 Discovery paco Kumar MD: [address] [place] [address] [address], [place] [address] , Ph. [phone] 2019-11-05 2019-11-05 Matthew NAYAK [place] - [id number] [facility] 00:00:00 00:00:00 Discovery paco Kumar MD: [address] [place] [address], [place] [address] , Ph. [phone] 2019-10-29 2019-10-29 Matthew NAYAK [place] - [id number] [facility] 00:00:00 00:00:00 Discovery paco Kumar MD: [address] [place] [address], [place] [address] , Ph. [phone] 2019-10-15 2019-10-15 Shantel AGUILAR [place] - [id number] [facility] 00:00:00 00:00:00 [facility] Medica catherine ANDRADE: [address] [place] [address] , Ph. [phone] 2019-10-08 2019-10-08 Octavia Espino MM [place] - [id number] 9 [facility] 00:00:00 00:00:00 Discovery paco Christensen WHNP: [address] [place] [phone] , Ph. [phone] 2019-09-03 2019-09-03 Matthew NAYAK [place] - [id number] M [facility] 00:00:00 00:00:00 Discovery paco Kumar MD: [address] [place] [phone] , Ph. [phone] 2019-08-06 2019-08-06 Shantel AGUILAR [place] - [id number] [facility] 00:00:00 00:00:00 [facility] Medicmini alexander MD: [address] [place] [phone] , Ph. [phone] 2019-07-09 2019-07-09 Matthew AGUILAR [place] - [id number] [facility] 00:00:00 00:00:00 Discovery paco Kumar MD: [address] [place] [phone] , Ph. [phone] 2019-06-11 2019-06-11 Octavia Espino MM [place] - [id number] 2 [facility] 00:00:00 00:00:00 Discovery paco Christensen JAYME: [address] [place] [phone] , Ph. [phone] 2019-05-14 2019-05-14 Shantel NAYAK [place] - [id number] [facility] 00:00:00 00:00:00 Oliver Salgado Medicmini alexander MD: [address] [facility] [address], [place] [address] , Ph. [phone] 2019-04-19 2019-04-19 Shantel [facility] [place] - [id number] M [facility] 00:00:00 00:00:00 Oliver Salgado MD: [address] [facility] [address], [place] [address] , Ph. [phone] Results Test Description Test Time Test Comments Results Result Comments Source Urinalysis macro (dipstick) panel - Urine 2019-12-06 14:11:1 1 Test Item Value Reference Range Interpretation Comme nts Leukocytes (test code = Leukocytes) Small Nitrite (test code = Nitrite) negative Urobilinogen (test code = Urobilinogen) .2 Protein (test code = Protein) Negative pH (test code = pH) 6.0 Blood (test code = Blood) Moderate Specific Medora (test code = Specific Medora) 1.025 Ketone (test code = Ketone) Negative Bilirubin (test code = Bilirubin) Negative Glucose (test code = Glucose) Negative Appearance (test code = Appearance) Clear Color (test code = Color) Yellow [facility] W Auto Differential panel - [id number] 03:57:00 Test Item Value Reference Range Interpretation Comments white blood count (test code = 8.7 K/uL 4.0-11.5 white blood count) red blood count (test code = red 3.38 M/uL 3.80-5.20 L blood count) hemoglobin (test code = 8.9 g/dL 10.5-15.7 L hemoglobin) hematocrit (test code = 28.2 % 34.0-50.0 L hematocrit) Erythrocyte mean corpuscular 83.4 fL 86-100 L volume [Entitic volume] (test code = 65720-3) mean corpuscular hemoglobin (test 26.3 pg 26.2-33.4 code = mean corpuscular hemoglobin) mean corpuscular HGB conc (test 31.6 g/dL 30-34 code = mean corpuscular HGB conc) red cell distribution width (test 13.2 % 12.0-15.5 code = red cell distribution width) platelet count (test code = 193 K/uL 165-450 platelet count) mean platelet volume (test code = 10.3 fL 9.4-12.6 mean platelet volume) Neutrophils.segmented/100 75.0 % 44.4-80.1 leukocytes in Blood (test code = 37322-2) Granulocytes Immature [#/volume] 0.0 K/uL 0.0-0.03 H in Blood (test code = 11728-7) lymphocyte% (test code = 14.7 % 10.0-50.0 lymphocyte%) mono % (test code = mono %) 8.3 % 3.6-12.0 eos % (test code = eos %) 1.3 % 0.0-5.4 Basophils/100 leukocytes in 0.2 % 0.1-1.2 Unspecified specimen (test code = 62677-4) Neutrophils.band form [#/volume] 6.51 K/uL 1.56-6.13 H in Blood (test code = 49994-8) Lymphocytes [#/volume] in 1.3 K/uL 1.18-3.74 Unspecified specimen by Automated count (test code = 79540-7) mono # (test code = mono #) 0.72 K/uL 0.24-0.86 eos # (test code = eos #) 0.11 K/uL 0.04-0.36 basophil # (test code = basophil 0.02 K/uL 0.01-0.08 #) NRBC% (test code = NRBC%) 0 /100 WBC 0-0.2 NRBC# (test code = NRBC#) 0 K/uL [facility] [id number] 03:57:00 NeutrophilsBandLymphocyteAtypical LymphMonocyteBasophilPlatelet EstimateDifferential comment-[facility] W Auto Differential panel - [id number] 07:09:00 Test Item Value Reference Range Interpretation Comments white blood count (test code = 8.2 K/uL 4.0-11.5 white blood count) red blood count (test code = red 3.44 M/uL 3.80-5.20 L blood count) hemoglobin (test code = 9.1 g/dL 10.5-15.7 hemoglobin) hematocrit (test code = 28.5 % 34.0-50.0 hematocrit) Erythrocyte mean corpuscular 82.8 fL 86-100 L volume [Entitic volume] (test code = 56614-6) mean corpuscular hemoglobin (test 26.5 pg 26.2-33.4 code = mean corpuscular hemoglobin) mean corpuscular HGB conc (test 31.9 g/dL 30-34 code = mean corpuscular HGB conc) red cell distribution width (test 13.1 % 12.0-15.5 code = red cell distribution width) platelet count (test code = 182 K/uL 165-450 platelet count) mean platelet volume (test code = 9.9 fL 9.4-12.6 mean platelet volume) Neutrophils.segmented/100 80.5 % 44.4-80.1 H leukocytes in Blood (test code = 92793-7) Granulocytes Immature [#/volume] 0.0 K/uL 0.0-0.03 in Blood (test code = 64166-7) lymphocyte% (test code = 12.0 % 10.0-50.0 lymphocyte%) mono % (test code = mono %) 6.6 % 3.6-12.0 eos % (test code = eos %) 0.4 % 0.0-5.4 Basophils/100 leukocytes in 0.1 % 0.1-1.2 Unspecified specimen (test code = 49973-2) Neutrophils.band form [#/volume] 6.60 K/uL 1.56-6.13 H in Blood (test code = 26635-1) Lymphocytes [#/volume] in 1.0 K/uL 1.18-3.74 L Unspecified specimen by Automated count (test code = 50459-5) mono # (test code = mono #) 0.54 K/uL 0.24-0.86 eos # (test code = eos #) 0.03 K/uL 0.04-0.36 L basophil # (test code = basophil 0.01 K/uL 0.01-0.08 #) NRBC% (test code = NRBC%) 0 /100 WBC 0-0.2 NRBC# (test code = NRBC#) 0 K/uL [facility] W Auto Differential panel - [id number] 04:18:00 Test Item Value Reference Range Interpretation Comments white blood count (test code = 9.6 K/uL 4.0-11.5 white blood count) red blood count (test code = red 4.55 M/uL 3.80-5.20 blood count) hemoglobin (test code = 11.7 g/dL 10.5-15.7 hemoglobin) hematocrit (test code = 37.6 % 34.0-50.0 hematocrit) Erythrocyte mean corpuscular 82.6 fL 86-100 L volume [Entitic volume] (test code = 35978-3) mean corpuscular hemoglobin (test 25.7 pg 26.2-33.4 L code = mean corpuscular hemoglobin) mean corpuscular HGB conc (test 31.1 g/dL 30-34 code = mean corpuscular HGB conc) red cell distribution width (test 13.1 % 12.0-15.5 code = red cell distribution width) platelet count (test code = 278 K/uL 165-450 platelet count) mean platelet volume (test code = 10.3 fL 9.4-12.6 mean platelet volume) Neutrophils.segmented/100 70.3 % 44.4-80.1 leukocytes in Blood (test code = 23449-1) Granulocytes Immature [#/volume] 0.0 K/uL 0.0-0.03 in Blood (test code = 83057-2) lymphocyte% (test code = 20.9 % 10.0-50.0 lymphocyte%) mono % (test code = mono %) 6.6 % 3.6-12.0 eos % (test code = eos %) 1.6 % 0.0-5.4 Basophils/100 leukocytes in 0.2 % 0.1-1.2 Unspecified specimen (test code = 75729-0) Neutrophils.band form [#/volume] 6.77 K/uL 1.56-6.13 H in Blood (test code = 80509-5) Lymphocytes [#/volume] in 2.0 K/uL 1.18-3.74 Unspecified specimen by Automated count (test code = 19860-1) mono # (test code = mono #) 0.64 K/uL 0.24-0.86 eos # (test code = eos #) 0.15 K/uL 0.04-0.36 basophil # (test code = basophil 0.02 K/uL 0.01-0.08 #) NRBC% (test code = NRBC%) 0 /100 WBC 0-0.2 NRBC# (test code = NRBC#) 0 K/uL [facility] and [facility]irect antibody screen panel - Blood 2019-11-14 04:18:00 Test Item Value Reference Range Interpretation Comments Rh [Type] in Blood (test code = 3+ 11167-2) ABO and Rh group panel - Blood A positive (test code = 25195-0) [facility] [Presence] in Serum by [id number] 04:18:00 Test Item Value Reference Range Interpretation Comments Reagin Ab [Presence] in Serum by nonreactive nonreactive RPR (test code = 04422-1) [facility] virus surface Ag [Presence] in Serum 2019-11-14 04:18:00 Test Item Value Reference Range Interpretation Comments .hepatitis B surface antigen (test negative negative code = .hepatitis B surface antigen) [facility]inal[facility] macro (dipstick) panel - [id number] 14:34:54 Test Item Value Reference Range Interpretation Comments Leukocytes (test code = Leukocytes) Small Nitrite (test code = Nitrite) negative Urobilinogen (test code = .2 Urobilinogen) Protein (test code = Protein) Trace pH (test code = pH) 6.0 Blood (test code = Blood) Small Specific Medora (test code = 1.030 Specific Medora) Ketone (test code = Ketone) Negative Bilirubin (test code = Bilirubin) Negative Glucose (test code = Glucose) Negative Appearance (test code = Appearance) Clear Color (test code = Color) Yellow [facility] macro (dipstick) panel - [id number] 14:34:54 Test Item Value Reference Range Interpretation Comments Leukocytes (test code = Leukocytes) Small Nitrite (test code = Nitrite) negative Urobilinogen (test code = .2 Urobilinogen) Protein (test code = Protein) Trace pH (test code = pH) 6.0 Blood (test code = Blood) Small Specific Medora (test code = 1.030 Specific Medora) Ketone (test code = Ketone) Negative Bilirubin (test code = Bilirubin) Negative Glucose (test code = Glucose) Negative Appearance (test code = Appearance) Clear Color (test code = Color) Yellow [facility] HospitalCbfrlLckjx-8-Bqauigwqgtaim.placental [Presence] in Vaginal [id number] 03:20:00 Test Item Value Reference Range Interpretation Comments Lobcf-4-Udaibztanukkg.placental negative neg [Presence] in Vaginal fluid (test code = 72596-6) [facility] W Auto Differential panel - [id number] 08:18:00 Test Item Value Reference Range Interpretation Comments white blood count (test code = 8.5 K/uL 4.0-11.5 white blood count) red blood count (test code = red 4.23 M/uL 3.80-5.20 blood count) hemoglobin (test code = 11.0 g/dL 10.5-15.7 hemoglobin) hematocrit (test code = 35.0 % 34.0-50.0 hematocrit) Erythrocyte mean corpuscular 82.7 fL 86-100 L volume [Entitic volume] (test code = 84974-5) mean corpuscular hemoglobin (test 26.0 pg 26.2-33.4 L code = mean corpuscular hemoglobin) mean corpuscular HGB conc (test 31.4 g/dL 30-34 code = mean corpuscular HGB conc) red cell distribution width (test 12.9 % 12.0-15.5 code = red cell distribution width) platelet count (test code = 252 K/uL 165-450 platelet count) mean platelet volume (test code = 10.0 fL 9.4-12.6 mean platelet volume) Neutrophils.segmented/100 76.3 % 44.4-80.1 leukocytes in Blood (test code = 87050-3) Granulocytes Immature [#/volume] 0.1 K/uL 0.0-0.03 H in Blood (test code = 30258-3) lymphocyte% (test code = 15.2 % 10.0-50.0 lymphocyte%) mono % (test code = mono %) 6.3 % 3.6-12.0 eos % (test code = eos %) 1.4 % 0.0-5.4 Basophils/100 leukocytes in 0.2 % 0.1-1.2 Unspecified specimen (test code = 91873-0) Neutrophils.band form [#/volume] 6.51 K/uL 1.56-6.13 H in Blood (test code = 82835-5) Lymphocytes [#/volume] in 1.3 K/uL 1.18-3.74 Unspecified specimen by Automated count (test code = 49862-0) mono # (test code = mono #) 0.54 K/uL 0.24-0.86 eos # (test code = eos #) 0.12 K/uL 0.04-0.36 basophil # (test code = basophil 0.02 K/uL 0.01-0.08 #) NRBC% (test code = NRBC%) 0 /100 WBC 0-0.2 NRBC# (test code = NRBC#) 0 K/uL [facility] W Auto Differential panel - [id number] 08:18:00 Test Item Value Reference Range Interpretation Comments white blood count (test code = 8.5 K/uL 4.0-11.5 white blood count) red blood count (test code = red 4.23 M/uL 3.80-5.20 blood count) hemoglobin (test code = 11.0 g/dL 10.5-15.7 hemoglobin) hematocrit (test code = 35.0 % 34.0-50.0 hematocrit) Erythrocyte mean corpuscular 82.7 fL 86-100 L volume [Entitic volume] (test code = 18299-4) mean corpuscular hemoglobin (test 26.0 pg 26.2-33.4 L code = mean corpuscular hemoglobin) mean corpuscular HGB conc (test 31.4 g/dL 30-34 code = mean corpuscular HGB conc) red cell distribution width (test 12.9 % 12.0-15.5 code = red cell distribution width) platelet count (test code = 252 K/uL 165-450 platelet count) mean platelet volume (test code = 10.0 fL 9.4-12.6 mean platelet volume) Neutrophils.segmented/100 76.3 % 44.4-80.1 leukocytes in Blood (test code = 73780-7) Granulocytes Immature [#/volume] 0.1 K/uL 0.0-0.03 H in Blood (test code = 33991-1) lymphocyte% (test code = 15.2 % 10.0-50.0 lymphocyte%) mono % (test code = mono %) 6.3 % 3.6-12.0 eos % (test code = eos %) 1.4 % 0.0-5.4 Basophils/100 leukocytes in 0.2 % 0.1-1.2 Unspecified specimen (test code = 97687-7) Neutrophils.band form [#/volume] 6.51 K/uL 1.56-6.13 H in Blood (test code = 25133-4) Lymphocytes [#/volume] in 1.3 K/uL 1.18-3.74 Unspecified specimen by Automated count (test code = 59122-4) mono # (test code = mono #) 0.54 K/uL 0.24-0.86 eos # (test code = eos #) 0.12 K/uL 0.04-0.36 basophil # (test code = basophil 0.02 K/uL 0.01-0.08 #) NRBC% (test code = NRBC%) 0 /100 WBC 0-0.2 NRBC# (test code = NRBC#) 0 K/uL [facility] macro (dipstick) panel - [id number] 14:57:02 Test Item Value Reference Range Interpretation Comments Leukocytes (test code = Leukocytes) Negative Nitrite (test code = Nitrite) negative Urobilinogen (test code = .2 Urobilinogen) Protein (test code = Protein) Trace pH (test code = pH) 6.0 Blood (test code = Blood) Negative Specific [place] (test code = 1.030 Specific [place]) Ketone (test code = Ketone) Negative Bilirubin (test code = Bilirubin) Negative Glucose (test code = Glucose) Negative Appearance (test code = Appearance) Clear Color (test code = Color) Yellow [facility] - [id number] 14:57:02 Test Item Value Reference Range Interpretation Comments Leukocytes (test code = Leukocytes) Negative Nitrite (test code = Nitrite) negative Urobilinogen (test code = .2 Urobilinogen) Protein (test code = Protein) Trace pH (test code = pH) 6.0 Blood (test code = Blood) Negative Specific [place] (test code = 1.030 Specific [place]) Ketone (test code = Ketone) Negative Bilirubin (test code = Bilirubin) Negative Glucose (test code = Glucose) Negative Appearance (test code = Appearance) Clear Color (test code = Color) Yellow [facility] (dipstick) panel - [id number] 14:57:02 Test Item Value Reference Range Interpretation Comments Leukocytes (test code = Leukocytes) Negative Nitrite (test code = Nitrite) negative Urobilinogen (test code = .2 Urobilinogen) Protein (test code = Protein) Trace pH (test code = pH) 6.0 Blood (test code = Blood) Negative Specific [place] (test code = 1.030 Specific [place]) Ketone (test code = Ketone) Negative Bilirubin (test code = Bilirubin) Negative Glucose (test code = Glucose) Negative Appearance (test code = Appearance) Clear Color (test code = Color) Yellow [facility] (dip[facility]) panel - [id number] 14:53:40 Test Item Value Reference Range Interpretation Comments Leukocytes (test code = Leukocytes) Small Nitrite (test code = Nitrite) negative Urobilinogen (test code = .2 Urobilinogen) Protein (test code = Protein) Negative pH (test code = pH) 6.5 Blood (test code = Blood) Negative Specific [place] (test code = 1.025 Specific [place]) Ketone (test code = Ketone) Negative Bilirubin (test code = Bilirubin) Negative Glucose (test code = Glucose) Negative Appearance (test code = Appearance) Clear Color (test code = Color) Yellow [facility] (dipstick) panel - [id number] 14:53:40 Test Item Value Reference Range Interpretation Comments Leukocytes (test code = Leukocytes) Small Nitrite (test code = Nitrite) negative Urobilinogen (test code = .2 Urobilinogen) Protein (test code = Protein) Negative pH (test code = pH) 6.5 Blood (test code = Blood) Negative Specific [place] (test code = 1.025 Specific [place]) Ketone (test code = Ketone) Negative Bilirubin (test code = Bilirubin) Negative Glucose (test code = Glucose) Negative Appearance (test code = Appearance) Clear Color (test code = Color) Yellow [facility] (dipstick) panel - [id number] 14:53:40 Test Item Value Reference Range Interpretation Comments Leukocytes (test code = Leukocytes) Small Nitrite (test code = Nitrite) negative Urobilinogen (test code = .2 Urobilinogen) Protein (test code = Protein) Negative pH (test code = pH) 6.5 Blood (test code = Blood) Negative Specific [place] (test code = 1.025 Specific [place]) Ketone (test code = Ketone) Negative Bilirubin (test code = Bilirubin) Negative Glucose (test code = Glucose) Negative Appearance (test code = Appearance) Clear Color (test code = Color) Yellow [facility]Presence] in Unspecified specimen by Organism specific [id number] 00:00:00 Test Item Value Reference Range Interpretation Comments group B streptococcus (gbs) by negative real-time PCR (test code = group B streptococcus (gbs) by real-time PCR) [facility] [Presence] in Unspecified specimen by Organism specific [id number] 00:00:00 Test Item Value Reference Range Interpretation Comments group B streptococcus (gbs) by negative real-time PCR (test code = group B streptococcus (gbs) by real-time PCR) [facility]+Neisseria gonorrhoeae DNA [Presence] in Unspecified specimen by Probe and target amplification method 2019-10-17 00:00:00 Test Item Value Reference Range Interpretation Comments chlamydia trachomatis by real-time negative PCR (reflex to azithromycin resistance by pyrosequencing) (test code = chlamydia trachomatis by real-time PCR (reflex to azithromycin resistance by pyrosequencing)) neisseria gonorrhoeae by real-time negative PCR (reflex to antibiotic resistance by molecular analysis) (test code = neisseria gonorrhoeae by real-time PCR (reflex to antibiotic resistance by molecular analysis)) [facility]Neisseria gonorrhoeae DNA [Presence] in Unspecified specimen by Probe and target amplification method 2019-10-17 00:00:00 Test Item Value Reference Range Interpretation Comments chlamydia trachomatis by real-time negative PCR (reflex to azithromycin resistance by pyrosequencing) (test code = chlamydia trachomatis by real-time PCR (reflex to azithromycin resistance by pyrosequencing)) neisseria gonorrhoeae by real-time negative PCR (reflex to antibiotic resistance by molecular analysis) (test code = neisseria gonorrhoeae by real-time PCR (reflex to antibiotic resistance by molecular analysis)) [facility]dip[facility] panel - [id number] 15:25:33 Test Item Value Reference Range Interpretation Comments Leukocytes (test code = Leukocytes) Small Nitrite (test code = Nitrite) negative Urobilinogen (test code = .2 Urobilinogen) Protein (test code = Protein) Negative pH (test code = pH) 7.0 Blood (test code = Blood) Negative Specific [place] (test code = 1.020 Specific [place]) Ketone (test code = Ketone) Negative Bilirubin (test code = Bilirubin) Negative Glucose (test code = Glucose) Negative Appearance (test code = Appearance) Clear Color (test code = Color) Yellow [facility] (dipstick) panel - [id number] 15:25:33 Test Item Value Reference Range Interpretation Comments Leukocytes (test code = Leukocytes) Small Nitrite (test code = Nitrite) negative Urobilinogen (test code = .2 Urobilinogen) Protein (test code = Protein) Negative pH (test code = pH) 7.0 Blood (test code = Blood) Negative Specific [place] (test code = 1.020 Specific [place]) Ketone (test code = Ketone) Negative Bilirubin (test code = Bilirubin) Negative Glucose (test code = Glucose) Negative Appearance (test code = Appearance) Clear Color (test code = Color) Yellow [facility] (dipstick) panel - [id number] 15:25:33 Test Item Value Reference Range Interpretation Comments Leukocytes (test code = Leukocytes) Small Nitrite (test code = Nitrite) negative Urobilinogen (test code = .2 Urobilinogen) Protein (test code = Protein) Negative pH (test code = pH) 7.0 Blood (test code = Blood) Negative Specific [place] (test code = 1.020 Specific [place]) Ketone (test code = Ketone) Negative Bilirubin (test code = Bilirubin) Negative Glucose (test code = Glucose) Negative Appearance (test code = Appearance) Clear Color (test code = Color) Yellow [facility] (dipstick) panel - [id number] 15:25:33 Test Item Value Reference Range Interpretation Comments Leukocytes (test code = Leukocytes) Small Nitrite (test code = Nitrite) negative Urobilinogen (test code = .2 Urobilinogen) Protein (test code = Protein) Negative pH (test code = pH) 7.0 Blood (test code = Blood) Negative Specific [place] (test code = 1.020 Specific [place]) Ketone (test code = Ketone) Negative Bilirubin (test code = Bilirubin) Negative Glucose (test code = Glucose) Negative Appearance (test code = Appearance) Clear Color (test code = Color) Yellow [facility] HospitalGlucose [Mass/volume] in Serum or Plasma --1 hour post dose [id number] 09:48:00 Test Item Value Reference Range Interpretation Comments Results (test code = Results) passed 99 [facility]Ur[facility] macro (dipstick) panel - [id number] 09:12:54 Test Item Value Reference Range Interpretation Comments Leukocytes (test code = Leukocytes) Small Nitrite (test code = Nitrite) negative Urobilinogen (test code = .2 Urobilinogen) Protein (test code = Protein) Negative pH (test code = pH) 8.0 Blood (test code = Blood) Negative Specific [place] (test code = 1.020 Specific [place]) Ketone (test code = Ketone) Negative Bilirubin (test code = Bilirubin) Negative Glucose (test code = Glucose) Negative Appearance (test code = Appearance) Clear Color (test code = Color) Yellow [facility] HospitalCB W Auto Differential panel - [id number] 09:02:00 Test Item Value Reference Range Interpretation Comments white blood count (test code = 7.2 K/uL 4.0-11.5 white blood count) red blood count (test code = red 4.17 M/uL 3.80-5.20 blood count) hemoglobin (test code = 11.0 g/dL 10.5-15.7 hemoglobin) hematocrit (test code = 34.9 % 34.0-50.0 hematocrit) Erythrocyte mean corpuscular 83.7 fL 86-100 L volume [Entitic volume] (test code = 55200-7) mean corpuscular hemoglobin (test 26.4 pg 26.2-33.4 code = mean corpuscular hemoglobin) mean corpuscular HGB conc (test 31.5 g/dL 30-34 code = mean corpuscular HGB conc) red cell distribution width (test 12.4 % 12.0-15.5 code = red cell distribution width) platelet count (test code = 241 K/uL 165-450 platelet count) mean platelet volume (test code = 9.9 fL 9.4-12.6 mean platelet volume) Neutrophils.segmented/100 72.0 % 44.4-80.1 leukocytes in Blood (test code = 73236-7) Granulocytes Immature [#/volume] 0.0 K/uL 0.0-0.03 in Blood (test code = 62951-8) lymphocyte% (test code = 18.9 % 10.0-50.0 lymphocyte%) mono % (test code = mono %) 7.2 % 3.6-12.0 eos % (test code = eos %) 1.4 % 0.0-5.4 Basophils/100 leukocytes in 0.1 % 0.1-1.2 Unspecified specimen (test code = 69959-5) Neutrophils.band form [#/volume] 5.21 K/uL 1.56-6.13 in Blood (test code = 29856-6) Lymphocytes [#/volume] in 1.4 K/uL 1.18-3.74 Unspecified specimen by Automated count (test code = 78832-8) mono # (test code = mono #) 0.52 K/uL 0.24-0.86 eos # (test code = eos #) 0.10 K/uL 0.04-0.36 basophil # (test code = basophil 0.01 K/uL 0.01-0.08 #) NRBC% (test code = NRBC%) 0 /100 WBC 0-0.2 NRBC# (test code = NRBC#) 0 K/uL [facility] HospitalTdxinYyreb-9-Uamszwhexpvxz.placental [Presence] in Vaginal [id number] 00:00:00 Test Item Value Reference Range Interpretation Comments Rosuo-2-Yglasvdibnipc.placental negative neg [Presence] in Vaginal fluid (test code = 89580-4) [facility]Ur[facility]ysis complete panel - [id number] 00:00:00 Test Item Value Reference Range Interpretation Comments Color of Urine by Auto (test yellow code = 92483-6) Appearance of Urine (test code clear clear = 5767-9) Glucose [Mass/volume] in Urine negative negative (test code = 2350-7) bilirubin, urine (test code = negative negative bilirubin, urine) ketone, urine (test code = negative negative ketone, urine) Specific gravity of Urine by 1.015 1.003-1.030 Automated test strip (test code = 05268-0) Hemoglobin [Presence] in Urine negative negative by Test strip (test code = 5794-3) pH of Urine (test code = 7.000 5-9 2756-5) protein urine (UA) (test code = negative negative protein urine (UA)) Urobilinogen [Presence] in 0.2 E.U./dL 0.2-1.0 Urine (test code = 87822-1) Nitrite [Presence] in Urine by negative negative Test strip (test code = 5802-4) urine leukocyte esterase (test negative negative code = urine leukocyte esterase) Erythrocytes [Presence] in none seen 0-5 Urine (test code = 43876-9) WBC, urine (test code = WBC, none seen 0-5 urine) Epithelial cells [Presence] in =0-5 0-5 Urine sediment by Light microscopy (test code = 23778-9) bacteria, urine (test code = none detected none detect bacteria, urine) Casts [#/area] in Urine none seen none detect sediment by Automated count (test code = 56343-5) urine culture added? (test code no = urine culture added?) transitional epi cells, urine =0-5 0-5 (test code = transitional epi cells, urine) [facility]Ur[facility] (dipstick) panel - [id number] 11:38:32 Test Item Value Reference Range Interpretation Comments Leukocytes (test code = Leukocytes) Negative Nitrite (test code = Nitrite) negative Urobilinogen (test code = 1 Urobilinogen) Protein (test code = Protein) 30 pH (test code = pH) 6.0 Blood (test code = Blood) Negative Specific [place] (test code = 1.020 Specific [place]) Ketone (test code = Ketone) Moderate Bilirubin (test code = Bilirubin) Moderate Glucose (test code = Glucose) Negative Appearance (test code = Appearance) Clear Color (test code = Color) Yellow [facility]Ur[facility] (dipstick) panel - [id number] 11:38:32 Test Item Value Reference Range Interpretation Comments Leukocytes (test code = Leukocytes) Negative Nitrite (test code = Nitrite) negative Urobilinogen (test code = 1 Urobilinogen) Protein (test code = Protein) 30 pH (test code = pH) 6.0 Blood (test code = Blood) Negative Specific [place] (test code = 1.020 Specific [place]) Ketone (test code = Ketone) Moderate Bilirubin (test code = Bilirubin) Moderate Glucose (test code = Glucose) Negative Appearance (test code = Appearance) Clear Color (test code = Color) Yellow [facility] HospitalBacteria identified in Urine by [id number] 02:32:00 Test Item Value Reference Range Interpretation Comments Bacteria identified in no growth after 2 Urine by Culture (test days code = 630-4) [facility]Ur[facility] (dipstick) panel - [id number] 09:54:51 Test Item Value Reference Range Interpretation Comments Leukocytes (test code = Leukocytes) Trace Nitrite (test code = Nitrite) negative Urobilinogen (test code = .2 Urobilinogen) Protein (test code = Protein) Trace pH (test code = pH) 7.0 Blood (test code = Blood) Negative Specific [place] (test code = 1.025 Specific [place]) Ketone (test code = Ketone) Negative Bilirubin (test code = Bilirubin) Negative Glucose (test code = Glucose) Negative Appearance (test code = Appearance) Clear Color (test code = Color) Yellow [facility]Ur[facility] macro (dipstick) panel - [id number] 09:54:51 Test Item Value Reference Range Interpretation Comments Leukocytes (test code = Leukocytes) Trace Nitrite (test code = Nitrite) negative Urobilinogen (test code = .2 Urobilinogen) Protein (test code = Protein) Trace pH (test code = pH) 7.0 Blood (test code = Blood) Negative Specific [place] (test code = 1.025 Specific [place]) Ketone (test code = Ketone) Negative Bilirubin (test code = Bilirubin) Negative Glucose (test code = Glucose) Negative Appearance (test code = Appearance) Clear Color (test code = Color) Yellow [facility] papilloma virus genotype [Identifier] in Unspecified specimen by Probe and target amplification [id number] 00:00:00 Test Item Value Reference Range Interpretation Comments HPV type-detect 3.0 by next gen not detected sequencing (reflex to HPV-16 risk assessment status) (test code = HPV type-detect 3.0 by next gen sequencing (reflex to HPV-16 risk assessment status)) [facility] papilloma virus genotype [Identifier] in Unspecified specimen by Probe and target amplification [id number] 00:00:00 Test Item Value Reference Range Interpretation Comments HPV type-detect 3.0 by next gen not detected sequencing (reflex to HPV-16 risk assessment status) (test code = HPV type-detect 3.0 by next gen sequencing (reflex to HPV-16 risk assessment status)) [facility], IG + reflex HPV if [id number] 00:00:00 Test Item Value Reference Range Interpretation Comments General categories [interpretation] abnormal A of Cervical or vaginal smear or scraping by Cyto stain (test code = 46547-5) [facility], IG + reflex HPV if [id number] 00:00:00 Test Item Value Reference Range Interpretation Comments General categories [interpretation] abnormal A of Cervical or vaginal smear or scraping by Cyto stain (test code = 76772-4) [facility]Ch[facility]omat[facility]+Neisseria gonorrhoeae DNA [Presence] in Unspecified specimen by Probe and target amplification method 2019-05-19 00:00:00 Test Item Value Reference Range Interpretation Comments chlamydia trachomatis by real-time negative PCR (reflex to azithromycin resistance by pyrosequencing) (test code = chlamydia trachomatis by real-time PCR (reflex to azithromycin resistance by pyrosequencing)) neisseria gonorrhoeae by real-time negative PCR (reflex to antibiotic resistance by molecular analysis) (test code = neisseria gonorrhoeae by real-time PCR (reflex to antibiotic resistance by molecular analysis)) [facility]+Neisseria gonorrhoeae DNA [Presence] in Unspecified specimen by Probe and target amplification method 2019-05-19 00:00:00 Test Item Value Reference Range Interpretation Comments chlamydia trachomatis by real-time negative PCR (reflex to azithromycin resistance by pyrosequencing) (test code = chlamydia trachomatis by real-time PCR (reflex to azithromycin resistance by pyrosequencing)) neisseria gonorrhoeae by real-time negative PCR (reflex to antibiotic resistance by molecular analysis) (test code = neisseria gonorrhoeae by real-time PCR (reflex to antibiotic resistance by molecular analysis)) [facility] (dipstick) panel - [id number] 08:29:00 Test Item Value Reference Range Interpretation Comments Leukocytes (test code = Leukocytes) Negative Nitrite (test code = Nitrite) negative Urobilinogen (test code = .2 Urobilinogen) Protein (test code = Protein) Negative pH (test code = pH) 6.5 Blood (test code = Blood) Negative Specific [place] (test code = 1.005 Specific [place]) Ketone (test code = Ketone) Negative Bilirubin (test code = Bilirubin) Negative Glucose (test code = Glucose) Negative Appearance (test code = Appearance) Clear Color (test code = Color) Yellow [facility] (dipstick) panel - [id number] 08:29:00 Test Item Value Reference Range Interpretation Comments Leukocytes (test code = Leukocytes) Negative Nitrite (test code = Nitrite) negative Urobilinogen (test code = .2 Urobilinogen) Protein (test code = Protein) Negative pH (test code = pH) 6.5 Blood (test code = Blood) Negative Specific [place] (test code = 1.005 Specific [place]) Ketone (test code = Ketone) Negative Bilirubin (test code = Bilirubin) Negative Glucose (test code = Glucose) Negative Appearance (test code = Appearance) Clear Color (test code = Color) Yellow [facility] W Auto Differential panel - [id number] 01:06:00 Test Item Value Reference Range Interpretation Comments white blood count (test code = 7.5 K/uL 4.0-11.5 white blood count) red blood count (test code = red 4.63 M/uL 3.80-5.20 blood count) Hemoglobin [Mass/volume] in Blood 12.2 g/dL 10.5-15.7 (test code = 718-7) hematocrit (test code = hematocrit) 38.4 % 34.0-50.0 Erythrocyte mean corpuscular volume 83.0 fL 78-98 [Entitic volume] (test code = 94199-5) Erythrocyte mean corpuscular 26.3 pg 26.2-33.4 hemoglobin [Entitic mass] (test code = 22313-2) mean corpuscular HGB conc (test 31.7 g/dL 31.5-36.2 code = mean corpuscular HGB conc) red cell distribution width (test 12.2 % 11.5-15.5 code = red cell distribution width) Platelets [#/volume] in Blood (test 264 K/uL 137-338 code = 33137-1) Platelet mean volume [Entitic 6.6 fL 8.4-11.8 L volume] in Blood (test code = 96806-0) Neutrophils.band form/100 67.9 % 44.4-80.1 leukocytes in Blood (test code = 10014-6) Lymphocytes/100 leukocytes in Body 20.5 % 10.0-50.0 fluid (test code = 79715-6) Monocytes/100 leukocytes in Blood 7.9 % 3.6-12.0 by Automated count (test code = 5905-5) Eosinophils/100 leukocytes in Blood 3.0 % 0.0-5.4 by Automated count (test code = 713-8) Basophils/100 leukocytes in 0.8 % 0.0-0.79 H Unspecified specimen (test code = 42495-0) [facility]different[facility], [id number] 01:06:00 NeutrophilsBandLymphocyteMonocytePlatelet EstimateMatagoMerit Health NatchezRubella virus IgG Ab [Titer] in [id number] 01:06:00 Test Item Value Reference Range Interpretation Comments Rubella virus IgG Ab 38.74 [IU]/mL [Units/volume] in Serum by Immunoassay (test code = 5334-8) [facility]ABO & Rh group [Type] in [id number] 01:06:00 Test Item Value Reference Range Interpretation Comments Rh [Type] in Blood (test code = 4+ 88275-7) ABO and Rh group panel - Blood A positive (test code = 80721-0) [facility]Blood [facility] antibody screen [Presence] in Serum or Plasma 2019-04-19 01:06:00 Test Item Value Reference Range Interpretation Comments Blood group antibody screen negative [Presence] in Serum or Plasma (test code = 890-4) [facility] HospitalHIV 1+2 Ab [Presence] in [id number] 01:06:00HIV P24 AgHIV-1/2 AbMataN[facility] HospitalBacteria identified in Urine by Culture 2019-04-19 01:06:00 Test Item Value Reference Range Interpretation Comments Bacteria identified in no growth at 48 hrs. Urine by Culture (test code = 630-4) [facility] HospitalReagin Ab [Presence] in Serum by [id number] 01:06:00 Test Item Value Reference Range Interpretation Comments Reagin Ab [Presence] in Serum by nonreactive nonreactive RPR (test code = 10263-0) [facility] HospitalHepatitis B virus surface Ag [Presence] in Serum 2019-04-19 01:05:00 Test Item Value Reference Range Interpretation Comments .hepatitis B surface antigen (test negative negative code = .hepatitis B surface antigen) [facility]
[2020-10-20 21:53] LABS: Absolute Lymphocytes (CBC) 2.3 K/uL (0.7-4.9); Basophils % 0.7 % (0-1.3); Hematocrit 40.6 % (36.0-45.0); Lymphocytes % 32.6 % (15.3-44.8); RBC Red Blood Cell Count 5.07 M/uL (3.86-4.86)
[2020-10-20] MEDS ORDERED: NA CHLORIDE 0.9% 1,000 ML ONE (22:00)
[2020-10-20] MEDS ORDERED: KETOROLAC 30 MG/ML INJ ONE (22:00)
[2020-10-20 22:06] LABS: ALT/SGPT 15 U/L (12-78); AST/SGOT 13 U/L (15-37); Alkaline Phosphatase 72 U/L (45-117); BUN Blood Urea Nitrogen 14 mg/dL (7-18); Bicarbonate 29 mmol/L (21-32); Bilirubin Direct < 0.1 mg/dL (0-0.2); Bilirubin Total 0.2 mg/dL (0.2-1.0); Glucose Level 88 mg/dL (74-106); Lipase 168 U/L (73-393); Potassium 3.5 mmol/L (3.5-5.1); Protein, Total 7.9 g/dL (6.4-8.2); Sodium Level 144 mmol/L (136-145)
[2020-10-20 22:09] LABS: Urine Bacteria <20 /HPF (<20); Urine RBC NONE SEEN /HPF (NONE SEEN)
[2020-10-20 22:10] LABS: Urine Mucus 1+ /HPF (NONE SEEN)
[2020-10-20 22:10] LABS: Urine Blood NEGATIVE (NEG); Urine Glucose NEGATIVE (NEG); Urine Protein NEGATIVE (NEG); Urine Specific Gravity >1.030 (1.005-1.030)
[2020-10-20] MEDS ORDERED: ONDANSETRON 4 MG/2 ML VIAL ONE (23:22)
--- NOTE | 2020-10-20 23:44 | ER ---
Nurse's Notes [facility] Name: Melody Maldonado Age: 25 yrs Sex: Female : 1995 Arrival Date: 10/20/2020 Time: 18:47 Bed 20 Private MD: Diagnosis: Unspecified abdominal pain;Diarrhea, unspecified Presentation: 10/20 19:41 Chief complaint: Patient states: I think my pancreatitis is flaring back up. Last ca1 couple days, been having diarrhea, cramping and N/V with big meals. Denies fever. Coronavirus screen: Client denies travel out of the [place] in the last 14 days. diarrhea, nausea, vomiting. Client presents with at least one sign or symptom that may indicate coronavirus-19. Standard/surgical mask placed on the client. Provider contacted for isolation considerations. Ebola Screen: Patient negative for fever greater than or equal to 101.5 degrees Fahrenheit, and additional compatible Ebola Virus Disease symptoms Patient denies exposure to infectious person. Patient denies travel to an Ebola-affected area in the 21 days before illness onset. No symptoms or risks identified at this time. Initial Sepsis Screen: Does the patient meet any 2 criteria? No. Patient's initial sepsis screen is negative. Does the patient have a suspected source of infection? No. Patient's initial sepsis screen is negative. Risk Assessment: Do you want to hurt yourself or someone else? Patient reports no desire to harm self or others. Onset of symptoms was October 20, 2020. 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 - Social history:: Smoking status: Patient denies any tobacco usage or history of. Screenin:08 Abuse screen: Denies threats or abuse. Denies injuries from another. Nutritional rv screening: No deficits noted. Tuberculosis screening: No symptoms or risk factors identified. Fall Risk None identified. Assessment: 21:00 General: Appears comfortable, Behavior is calm, cooperative. rv 21:00 Pain: Complains of pain in abdomen Pain currently is 2 out of 10 on a pain scale. rv Neuro: Level of Consciousness is awake, alert, obeys commands, Oriented to person, place, time, situation. Cardiovascular: Patient's skin is warm and dry. Respiratory: Airway is patent Respiratory effort is even, unlabored. GI: Bowel sounds present X 4 quads. Abd is soft and non tender X 4 quads. Derm: Skin is intact. Vital Signs: 19:41 BP 111 / 79; Pulse 81; Resp 16 S; Temp 97(TE); Pulse Ox 100% on R/A; Weight 72.57 kg ca1 (R); Height 5 ft. 1 in. (154.94 cm) (R); Pain 4/10; 22:08 BP 106 / 68; Pulse 62; Resp 16; Pulse Ox 100% on R/A; rv 23:11 BP 106 / 71; Pulse 62; Resp 15; Temp 98; Pulse Ox 100% on R/A; rv 19:41 Body Mass Index 30.23 (72.57 kg, 154.94 cm) ca1 ED Course: 18:47 Patient arrived in ED. ag5 19:44 Triage completed. ca1 19:45 Arm band placed on right wrist. ca1 21:20 Mamadou Connolly NP is PHCP. pm1 21:20 Katiuska Stearns MD is Attending Physician. pm1 21:21 Levon Richard RN is Primary Nurse. rv 21:35 Inserted saline lock: 20 gauge in right antecubital area, using aseptic technique. rv Blood collected. 21:35 Initial lab(s) drawn, by nh, sent to lab. rv 22:36 CT Abd/Pelvis - IV Contrast Only In Process Unspecified. EDMS Administered Medications: 21:47 Drug: NS 0.9% 1000 ml Route: IV; Rate: 1000 ml; Site: right antecubital; rv 23:11 Follow up: IV Status: Completed infusion; IV Intake: 1000ml rv 21:47 Drug: TORadol - Ketorolac 15 mg Route: IVP; Site: right antecubital; rv 23:11 Follow up: Response: No adverse reaction rv 23:11 Drug: Zofran (Ondansetron) 4 mg Route: IVP; Site: right antecubital; rv 12/22 00:19 Follow up: Response: No adverse reaction rv Intake: 10/20 23:11 IV: 1000ml; Total: 1000ml. rv Outcome: 23:44 Discharge ordered by pm1 10/21 00:12 Patient left the ED. rv Signatures: Dispatcher [employer] EDMS Mamadou Connolly, JAYME INSTRUCTIONAL COACH pm1 Levon Richard RN RN rv Acob, Cheryl, RN RN ca1 [place], [facility]
--- NOTE | 2020-10-20 23:44 | EDPHYS ---
Physician Documentation [facility] Name: Melody Maldonado Age: 25 yrs Sex: Female : 1995 Arrival Date: 10/20/2020 Time: 18:47 Bed 20 Private MD: ED Physician Katiuska Stearns HPI: 10/20 21:39 This 25 yrs old Female presents to ER via Ambulatory with complaints of pm1 Abdominal Pain, Vomiting. 21:39 The patient presents with abdominal pain in the epigastric area, in the lower abdomen. pm1 Onset: The symptoms/episode began/occurred 3 day(s) ago. The symptoms do not radiate. Associated signs and symptoms: Pertinent positives: diarrhea, vomit x 2 today, Pertinent negatives: chest pain, shortness of breath. Severity of pain: in the emergency department the pain has improved is a 2 / 10. The patient has not recently seen a physician. 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 - Social history:: Smoking status: Patient denies any tobacco usage or history of. ROS: 21:39 Constitutional: Negative for fever, chills, and weight loss. pm1 21:39 Cardiovascular: Negative for chest pain, palpitations, and edema, Respiratory: Negative for shortness of breath, cough, wheezing, and pleuritic chest pain. 21:39 Back: Negative for injury and pain, : Negative for injury, bleeding, discharge, and swelling, MS/Extremity: Negative for injury and deformity, Skin: Negative for injury, rash, and discoloration, Neuro: Negative for headache, weakness, numbness, tingling, and seizure. 21:39 Abdomen/GI: Positive for abdominal pain, nausea, vomiting, and diarrhea, of the epigastric area and suprapubic area. Exam: 21:39 Constitutional: This is a well developed, well nourished patient who is awake, alert, pm1 and in no acute distress. Head/Face: Normocephalic, atraumatic. 21:39 Abdomen/GI: Soft, non-tender, with normal bowel sounds. No distension or tympany. No guarding or rebound. No evidence of tenderness throughout. Back: No spinal tenderness. No costovertebral tenderness. Full range of motion. Skin: Warm, dry with normal turgor. Normal color with no rashes, no lesions, and no evidence of cellulitis. MS/ Extremity: Pulses equal, no cyanosis. Neurovascular intact. Full, normal range of motion. 21:39 Cardiovascular: Exam negative for acute changes, Rate: normal, Rhythm: regular, Pulses: no pulse deficits are appreciated, Edema: is not appreciated. 21:39 Respiratory: Exam negative for acute changes, respiratory distress, shortness of breath. 21:39 Neuro: Exam negative for acute changes, Orientation: is normal, Mentation: is normal, Motor: is normal, moves all fours. Vital Signs: 19:41 BP 111 / 79; Pulse 81; Resp 16 S; Temp 97(TE); Pulse Ox 100% on R/A; Weight 72.57 kg ca1 (R); Height 5 ft. 1 in. (154.94 cm) (R); Pain 4/10; 22:08 BP 106 / 68; Pulse 62; Resp 16; Pulse Ox 100% on R/A; rv 23:11 BP 106 / 71; Pulse 62; Resp 15; Temp 98; Pulse Ox 100% on R/A; rv 19:41 Body Mass Index 30.23 (72.57 kg, 154.94 cm) ca1 MDM: 21:20 Patient medically screened. pm1 23:38 Data reviewed: vital signs. Data interpreted: Pulse oximetry: on room air is 100 %. pm1 Interpretation: normal. Counseling: I had a detailed discussion with the patient and/or guardian regarding: the historical points, exam findings, and any diagnostic results supporting the discharge/admit diagnosis, lab results, radiology results, the need for outpatient follow up, a family practitioner, a general surgeon, to return to the emergency department if symptoms worsen or persist or if there are any questions or concerns that arise at home. 23:52 ED course: Discussed CT findings with the patient and need to follow up with RUQ U/S pm1 since not available in the ER at this time. U/S can differential between cholelithiasis or gallbladder polyps. Labs WNLs, therefore patient can be discharged to follow up with PCP. Patient reports onset of pain and diarrhea possibly after eating nachos . 10/20 21:35 Order name: Basic Metabolic Panel; Complete Time: 22:19 pm1 10/20 21:35 Order name: CBC with Diff; Complete Time: 22:19 pm1 10/20 21:35 Order name: Hepatic Function; Complete Time: 22:19 pm1 10/20 21:35 Order name: Lipase; Complete Time: 22:19 pm1 10/20 21:35 Order name: Urine Microscopic Only; Complete Time: 22:19 pm1 10/20 21:45 Order name: Urine --Ancillary (enter results); Complete Time: 22:19 tt3 10/20 21:35 Order name: IV Saline Lock; Complete Time: 21:36 pm1 10/20 21:35 Order name: Labs collected and sent; Complete Time: 21:36 pm1 10/20 21:35 Order name: Urine Dipstick-Ancillary (obtain specimen); Complete Time: 21:36 pm1 10/20 21:35 Order name: CT Abd/Pelvis - IV Contrast Only pm1 10/20 21:45 Order name: Urine Dipstick--Ancillary (enter results); Complete Time: 22:19 tt3 10/20 21:35 Order name: Urine Test (obtain specimen); Complete Time: 21:36 pm1 Administered Medications: 21:47 Drug: NS 0.9% 1000 ml Route: IV; Rate: 1000 ml; Site: right antecubital; rv 23:11 Follow up: IV Status: Completed infusion; IV Intake: 1000ml rv 21:47 Drug: TORadol - Ketorolac 15 mg Route: IVP; Site: right antecubital; rv 23:11 Follow up: Response: No adverse reaction rv 23:11 Drug: Zofran (Ondansetron) 4 mg Route: IVP; Site: right antecubital; rv 10/21 00:19 Follow up: Response: No adverse reaction rv Disposition: 04:01 Co-signature as Attending Physician, Katiuska Stearns MD. ma2 Disposition: 10/20/20 23:44 Discharged to Home. Impression: Unspecified abdominal pain, Diarrhea, unspecified. - Condition is Stable. - Discharge Instructions: Abdominal Pain, Adult, Food Choices to Help Relieve Diarrhea, Adult, Diarrhea, Adult, Form - Return To Work. - Prescriptions for Bentyl 20 mg Oral Tablet - take 1 tablet by ORAL route every 6 hours As needed; 20 tablet. Zofran 4 mg Oral Tablet - take 1 tablet by ORAL route every 12 hours As needed; 20 tablet. - Medication Reconciliation Form, Thank You Letter, Antibiotic Education, Prescription Opioid Use, Work release form form. - Follow up: Emergency Department; When: As needed; Reason: Worsening of condition. Follow up: Private Physician; When: 2 - 3 days; Reason: Recheck today's complaints, Continuance of care, Re-evaluation by your physician. - Problem is new. - Symptoms have improved. Signatures: Dispatcher [employer] EDMS Mamadou Connolly, JAYME MODEL ENGINE MECHANIC pm1 Katiuska Stearns MD MD ma2 Levon Richard RN RN rv Marti Hernandez RN RN ca1 Corrections: (The following items were deleted from the chart) 10/20 23:55 23:44 10/20/2020 23:44 Discharged to Home. Impression: Unspecified abdominal pain. pm1 Condition is Stable. Forms are Medication Reconciliation Form, Thank You Letter, Antibiotic Education, Prescription Opioid Use. Follow up: Emergency Department; When: As needed; Reason: Worsening of condition. Follow up: Private Physician; When: 2 - 3 days; Reason: Recheck today's complaints, Continuance of care, Re-evaluation by your physician. Problem is new. Symptoms have improved. pm1 10/21 00:12 10/20 23:55 10/20/2020 23:44 Discharged to Home. Impression: Unspecified abdominal rv pain; Diarrhea, unspecified. Condition is Stable. Discharge Instructions: Abdominal Pain, Adult, Form - Return To Work. Prescriptions for Bentyl 20 mg Oral Tablet - take 1 tablet by ORAL route every 6 hours As needed; 20 tablet, Zofran 4 mg Oral Tablet - take 1 tablet by ORAL route every 12 hours As needed; 20 tablet. and Forms are Medication Reconciliation Form, Thank You Letter, Antibiotic Education, Prescription Opioid Use. Follow up: Emergency Department; When: As needed; Reason: Worsening of condition. Follow up: Private Physician; When: 2 - 3 days; Reason: Recheck today's complaints, Continuance of care, Re-evaluation by your physician. Problem is new. Symptoms have improved. pm1
--- NOTE | 2020-10-21 13:51 | RAD REPORT ---
EXAM DESCRIPTION: CT - Abdomen Pelvis W Contrast - 10/21/2020 6:58 am CLINICAL HISTORY: Abdominal pain. Diarrhea, cramping, nausea, and vomiting. COMPARISON: None Available. TECHNIQUE: CT of the abdomen and pelvis performed following IV administration of iodinated contras t. FINDINGS: Lung Bases: The visualized lung bases are clear. Bones: No destructive bone lesions identified. Abdomen: Liver: The liver has normal size and density. No intrahepatic biliary dilatation. Gallbladder: Small hypodensity structures in the gallbladder lumen. Spleen, Pancreas, and Adrenal Glands: The spleen, pancreas, and adrenal glands are unremarkable. Kidneys: No hydronephrosis or obstructing calculus. Vasculature: The aorta and IVC have normal caliber and position. The portal vein is patent. The pro ximal visceral and renal arteries are patent. Stomach: The stomach and duodenum have normal course. Other: No free intraperitoneal air. No free fluid or lymphadenopathy. Pelvis: Bladder: Urinary bladder is unremarkable. Bowel: No dilated loops of large or small bowel. Appendix: Normal appendix. Pelvis: Uterus is not enlarged. IMPRESSION: 1. Small hypodense structures in the gallbladder lumen may represent gallstones, polyp, or sludge. No other CT evidence of acute cholecystitis. Right upper quadrant ultrasound may be helpfu l. This exam was performed according to our departmental dose-optimization program, which includes autom ated exposure control, adjustment of the mA and/or kV according to patient size and/or use of iterati ve reconstruction technique. Electronically signed by: Antolin Grullon 10/20/2020 10:50 PM STORE PLANNER Due to temporary technical issues with the PACS/Fluency reporting system, reports are being signed by the in house radiologists without review as a courtesy to insure prompt reporting. The interpreting radiologist is fully responsible for the content of the report.
[2020-10-22 03:51] VITALS: O2SAT 100
[2020-10-22 03:54] VITALS: BP 106/71; TEMP 98
== END 2020-10-21 00:12 | disposition home or self-care (01) ==
LOC: ER 18:44
DX: R19.7 Diarrhea, unspecified (principal); Z91.040 Latex allergy status; Z91.048 Other nonmedicinal substance allergy status
CPT/HCPCS: 96361; 85025; 80048; 36415; 81025; 80076; 83690; 74177; 96375; 96374; 99284; Q9967; J7030; J2405; 81003; 81015

== ENCOUNTER 2023-10-06 09:24 | Emergency (ER) | payer OTHER ==
--- OUTSIDE RECORDS SUMMARY | 2023-10-06 09:28 | XMS REPORT | Continuity of Care Document ---
Author Name Unknown Address [address] [facility] [address] [place] [address] [facility] thconnect Address [address] [facility] [address] [place] [address] Support Name Relationship Address Phone JAMI MAO [address] [place] [address] XAVIER MORROW Emergency Provider [address] [place] [address] PHYSICIAN, NO Primary Care Physician Unknown Unav ailable FABIOLA HITCHCOCK Next of Kin [address] [place] [address] DO Roby CEJA DO Primary Care Physician [address] [place] [address] CARMITA ANDRADE, [facility] Emergency Provider [address] [place] [address] MD [facility] Emergency Provider [address] [place] [address] FABIOLA HITCHCOCK Family Member [address] [place] [address] Unavailable LACEY BLACK DRAWING IN HAND-C Primary Care Physician [address] [place] [address] MD JESSICA ROSARIO Admitting Provider [address] [place] [address] MD [place]HE[place] [address] MD CLAUS DAVIDSON Emergency Provider [address] [place] [address] MD NIGEL SEXTON Other Provider [address] [place] [address] NALDO FISHER Family Member [address] [place] [address] Unavailable MD MELINA CARMEN Emergency Provider [address] [place] [address] [email or web address] NALDO FISHER Family Member [address] [place] [address] Unavailable MD SABINA PRIEST Emergency Provider [address] [place] [address] MARQUIS ACUÑA [place] [place] [address] JAMI MAO Emergency Contact [address] [place] [address] MD FERCHO BUCHANAN Emergency Provider [facility], [place] [address] UDAY HITCHCOCK Family Member [address] [place] [address] MD Astrid Cruz Emergency Provider [address] [place] [address] Care Team Providers Care Extractions Technician Name Role Phone LACEY BLACK Primary Care Physician UnavailAstrid Graham Attending Clinician Unavailab le IHDE_G Attending Clinician Unavailable NIGEL SEXTON Attending Clinician UnavailFERCHO Vela Attending Clinician UnavailSABINA Lopez Attending Clinician Unavailab autumn ARELLANO Attending Clinician Unavailab MELINA Kincaid MD(DO NOT USE) Attending Clinic anuel Unavailable RAYMUNDO HAMILTON Attending Clinician Unavailable Raymundo Hamilton DO Attending Clinician CLAUS DAVIDSON Attending Clinician Unavailable GIANCARLO SEARS Attending Clinician Unavailable JESSICA ROSARIO Attending Clinician Unavaila tracey Nuñez Attending Clinician Unavailable RIZWAN CAI Attending Clinician Unavailable Hiwot Attending Clinician Unavailable MATTHEW KUMAR Attending Clinician UnavailOCTAVIA Cobian Attending Clinician Unavailable MISTY VIZCARRA Attending Clinician Unavaila XAVIER Gonzales Attending Clinician Unavailable JUAN SHAH Attending Clinician Unavail able GUALBERTO GALAVIZ Attending Clinician Rocael ROSARIO_Chris Admitting Clinician Unavailable ADAN Admitting Clinician Unavailab JESSICA Wyman Admitting Clinician Unavaila tracey Nuñez Admitting Clinician Unavailable Hiwot Admitting Clinician Unavailable MATTHEW KUMAR Admitting Clinician Unavailabl e Payers Payer Name Policy Type Policy Number Effective Date Expirati on Date Source CLAUDE MATA FROM [facility] [id number] [facility] (MEDICAID HMO) [id number] 2016 00:00:00 [facility] [id number] 2021 00:00:00 Problems Condition Name Condition Details Condition Category Status Onset Date Resolution Date Last Treatment Date Treating Clinician Comments Source Anemia Anemia Problem Active 2020-10 00:00: 00 [facility] Secondary dysmenorrh ea Secondary Dysmenorrh ea Problem Active 05-21 00:00: 00 [facility] Intermenst rual bleeding - irregular Intermenst rual Bleeding - Irregular Problem Active 05-21 00:00: 00 [facility] Initial prescripti on of oral contracept ion Initial Prescripti on of Oral Contracept ion Problem Active 05-21 00:00: 00 [facility] Venereal disease screening Venereal Disease Screening Problem Active 05-21 00:00: 00 [facility] Medication side effects present Medication Side Effects Present Problem Active 05-21 00:00: 00 [facility] Atypical squamous cells of undetermin ed significan ce Atypical Squamous Cells of Undetermin ed Significan ce Problem Active 05-29 00:00: 00 [facility] Anemia Anemia Disease Active 05-30 00:00: 00 [facility] Obesity (BMI 30-39.9) Obesity (BMI 30-39.9) Disease Active 05-29 00:00: 00 [facility] 39 weeks gestation of 39 weeks gestation of Disease Active 05-29 00:00: 00 [facility] Liveborn infant by vaginal delivery Liveborn infant by vaginal delivery Disease Active 05-29 00:00: 00 [facility] Allergies, Adverse Reactions, Alerts Allergy Name Allergy Type Status Severity Reaction(s) Onset Date Inactive Date Treating Clinician Comments Source Latex Propensi ty to adverse reaction s Active Hives 2020-10 00:00: 00 [facility] LATEX DRUG INGREDI Active Hives 2020-10 00:00: 00 [facility] CHOCOLAT E FLAVOR DRUG INGREDI Active Hives 05-29 00:00: 00 [facility] Chocolat e Flavor Propensi ty to adverse reaction s Active [facility] 05-29 00:00: 00 [facility] LATEX, NATURAL RUBBER Allergy to substanc e Active [facility] Social History Social Habit Start Date Stop Date Quantity Comments Source Exposure to SARS-CoV-2 (event) Not sure [facility] Alcohol intake 2021-10-17 00:00:00 2021-10-17 00:00:00 Current non-drinker of alcohol (finding) [facility] Tobacco use and exposure 2012-01-04 00:00:00 2012-01-04 00:00:[address] [facility] Sex Assigned At 1995 00:00:00 1995 00:00:00 [facility] Smoking Status Start Date Stop Date Source Never Smoker [facility] Medications Ordered Medication Name Filled Medication Name Start Date Stop Date Current Medication? Ordering Clinician Indication Dosage Frequency Signature (SIG) Comments Components Source lidocaine-r acepinep-te tracaine (L.E.T. (LIDO-EPINE PH-TETRA)) 4-0.05-0.5 % topical gel 3 mL 2020-10 03:30: 00 10-18 02:34 :00 No 3mL 3 mL, Topical, ONCE, 1 dose, On 10/17/21 at 2130, Routine [facility] cephALEXin (KEFLEX) 500 mg capsule 2020-10 00:00: 00 Yes [id number] 500mg Take 1 capsule by mouth 3 (three) times daily. [facility] acyclovir 800 mg tablet 2020-10 00:00: 00 Yes [id number] 800mg Take 1 tablet by mouth 5 (five) times daily. [facility] acyclovir 800 mg tablet 2020-10 00:00: 00 10-17 00:00 :00 No [id number] 800mg Take 1 tablet by mouth 5 (five) times daily for 7 days. [facility] cephALEXin (KEFLEX) 500 mg capsule 2020-10 00:00: 00 10-17 00:00 :00 No [id number] 500mg Take 1 capsule by mouth 3 (three) times daily for 7 days. [facility] fexofenadin e (JASON) 60 mg tablet 05-30 21:33: 55 Yes [id number] 30mg Take 30 mg by mouth daily. [facility] naproxen (NAPROSYN) 500 mg tablet 01-03 00:00: 00 Yes [id number] 500mg Take 1 Tab by mouth 2 (two) times daily with meals as needed for Pain. [facility] Vital Signs Vital Name Observation Time Observation Value Comments S vasquezloc Systolic blood pressure 2021-10-18 01:55:00 130 mm[Hg] [facility] Diastolic blood pressure 2021-10-18 01:55:00 82 mm[Hg] [facility] Heart rate 2021-10-18 01:55:00 91 /min [facility] Body temperature 2021-10-18 01:55:[address] [facility] Respiratory rate 2021-10-18 01:55:00 18 /min [facility] Body height 2021-10-18 01:55:00 165.1 cm [facility] Body weight 2021-10-18 01:55:00 86.183 kg [facility] BMI 2021-10-18 01:55:00 31.62 kg/m2 [facility] Oxygen saturation in Arterial blood by Pulse oximetry 2021-10-18 01:55:00 100 /[facility] BP Diastolic 2021-08-26 00:00:00 73 mm[Hg] [facility] Height 2021-08-26 00:00:00 62 [in_i] [facility] BMI (Body Mass Index) 2021-08-26 00:00:00 31.3 kg/m2 [facility] BP Systolic 2021-08-26 00:00:00 112 mm[Hg] [facility] Body Weight 2021-08-26 00:00:00 170.9 [lb_av] [facility] BP Diastolic 2020-11-06 00:00:00 64 mm[Hg] [facility] Height 2020-11-06 00:00:00 62 [in_i] [facility] BMI (Body Mass Index) 2020-11-06 00:00:00 31.6 kg/m2 [facility] BP Systolic 2020-11-06 00:00:00 123 mm[Hg] [facility] Body Weight 2020-11-06 00:00:00 173 [lb_av] [facility] BP Diastolic 2020-10-21 00:00:00 60 mm[Hg] [facility] Height 2020-10-21 00:00:00 62 [in_i] [facility] BMI (Body Mass Index) 2020-10-21 00:00:00 31.6 kg/m2 [facility] BP Systolic 2020-10-21 00:00:00 118 mm[Hg] [facility] Body Weight 2020-10-21 00:00:00 173 [lb_av] [facility] BP Diastolic 2020-05-21 00:00:00 69 mm[Hg] [facility] Height 2020-05-21 00:00:00 62 [in_i] [facility] BMI (Body Mass Index) 2020-05-21 00:00:00 30.9 kg/m2 [facility] BP Systolic 2020-05-21 00:00:00 105 mm[Hg] [facility] Body Weight 2020-05-21 00:00:00 169 [lb_av] [facility] BP Diastolic 2019-12-06 00:00:00 67 mm[Hg] [facility] Height 2019-12-06 00:00:00 62 [in_i] [facility] BMI (Body Mass Index) 2019-12-06 00:00:00 31.1 kg/m2 [facility] BP Systolic 2019-12-06 00:00:00 99 mm[Hg] [facility] Body Weight 2019-12-06 00:00:00 170.1 [lb_av] [facility] BP Diastolic 2019-11-12 00:00:00 74 mm[Hg] [facility] Height 2019-11-12 00:00:00 62 [in_i] [facility] BP Systolic 2019-11-12 00:00:00 124 mm[Hg] [facility] BP Diastolic 2019-11-05 00:00:00 75 mm[Hg] [facility] Height 2019-11-05 00:00:00 62 [in_i] [facility] BMI (Body Mass Index) 2019-11-05 00:00:00 35.5 kg/m2 [facility] BP Systolic 2019-11-05 00:00:00 119 mm[Hg] [facility] Body Weight 2019-11-05 00:00:00 194 [lb_av] [facility] BP Diastolic 2019-10-29 00:00:00 76 mm[Hg] [facility] Height 2019-10-29 00:00:00 62 [in_i] [facility] BMI (Body Mass Index) 2019-10-29 00:00:00 35.3 kg/m2 [facility] BP Systolic 2019-10-29 00:00:00 118 mm[Hg] [facility] Body Weight 2019-10-29 00:00:00 193 [lb_av] [facility] Height 2019-10-15 00:00:00 62 [in_i] [facility] BMI (Body Mass Index) 2019-10-15 00:00:00 34.1 kg/m2 [facility] Body Weight 2019-10-15 00:00:00 186.4 [lb_av] [facility] BP Diastolic 2019-10-08 00:00:00 72 mm[Hg] [facility] Height 2019-10-08 00:00:00 62 [in_i] [facility] BMI (Body Mass Index) 2019-10-08 00:00:00 33.3 kg/m2 [facility] BP Systolic 2019-10-08 00:00:00 117 mm[Hg] [facility] Body Weight 2019-10-08 00:00:00 181.9 [lb_av] [facility] BP Diastolic 2019-09-03 00:00:00 74 mm[Hg] [facility] Height 2019-09-03 00:00:00 62 [in_i] [facility] BMI (Body Mass Index) 2019-09-03 00:00:00 32.2 kg/m2 [facility] BP Systolic 2019-09-03 00:00:00 116 mm[Hg] [facility] Body Weight 2019-09-03 00:00:00 176.3 [lb_av] [facility] BP Diastolic 2019-08-06 00:00:00 69 mm[Hg] [facility] Height 2019-08-06 00:00:00 62 [in_i] [facility] BMI (Body Mass Index) 2019-08-06 00:00:00 31.1 kg/m2 [facility] BP Systolic 2019-08-06 00:00:00 113 mm[Hg] [facility] Body Weight 2019-08-06 00:00:00 169.8 [lb_av] [facility] BP Diastolic 2019-07-09 00:00:00 56 mm[Hg] [facility] Height 2019-07-09 00:00:00 62 [in_i] [facility] BMI (Body Mass Index) 2019-07-09 00:00:00 29.8 kg/m2 [facility] BP Systolic 2019-07-09 00:00:00 99 mm[Hg] [facility] Body Weight 2019-07-09 00:00:00 162.8 [lb_av] [facility] BP Diastolic 2019-06-11 00:00:00 68 mm[Hg] [facility] Height 2019-06-11 00:00:00 62 [in_i] [facility] BMI (Body Mass Index) 2019-06-11 00:00:00 29.6 kg/m2 [facility] BP Systolic 2019-06-11 00:00:00 123 mm[Hg] [facility] Body Weight 2019-06-11 00:00:00 161.7 [lb_av] [facility] BP Diastolic 2019-05-14 00:00:00 68 mm[Hg] [facility] Height 2019-05-14 00:00:00 62 [in_i] [facility] BP Systolic 2019-05-14 00:00:00 100 mm[Hg] [facility] Body Weight 2019-05-14 00:00:00 162 [lb_av] [facility] BP Diastolic 2019-04-19 00:00:00 73 mm[Hg] [facility] Height 2019-04-19 00:00:00 62 [in_i] [facility] BMI (Body Mass Index) 2019-04-19 00:00:00 29.2 kg/m2 [facility] BP Systolic 2019-04-19 00:00:00 132 mm[Hg] [facility] Body Weight 2019-04-19 00:00:00 159.6 [lb_av] [facility] Procedures Procedure Date / Time Performed Performing Clinician Source URINALYSIS 2021-10-18 02:20:00 Raymundo Hamilton [facility] CONSENT/REFUSAL FOR DIAGNOSIS AND TREATMENT 2021-10-18 01:46:56 Doctor Unassigned, [place] [facility] NOTICE OF PRIVACY PRACTICES 2021-10-18 01:46:16 Doctor Unassigned, [place] [facility] Cholecystectomy 2020-10-22 00:00:00 [facility] Section (Surg) 2019-11-14 00:00:00 [facility] US, obstetric, limited 2019-11-12 00:00:00 [facility] US, obstetric, limited 2019-11-05 00:00:00 [facility] US, obstetric, limited 2019-10-29 00:00:00 [facility] US, obstetric, limited 2019-10-15 00:00:00 [facility] US, obstetric, limited 2019-10-08 00:00:00 [facility] ULTRASOUND REPEAT 2019-09-03 00:00:00 [facility] US, obstetric, limited 2019-06-11 00:00:00 [facility] ULTRASOUND, UTERUS REAL TIME WITH IMAGE DOC, AND MATERNAL EVAL PLUS DETAILED ANATOMIC EXAMINATION, TRANSABDOMINAL APPROACH; SINGLE OR FIRST GESTATION 2019-06-11 00:00:00 [facility] US, obstetric, limited 2019-05-14 00:00:00 [facility] Plan of Care Planned Activity Planned Date Details Comments Source Diagnostic Test Pending 2021-08-26 00:00:00 urinalysis, dipstick [code = urinalysis, dipstick] [facility] Diagnostic Test Pending 2021-08-26 00:00:00 beta-HCG, quantitative, serum or plasma [code = beta-HCG, quantitative, serum or plasma] [facility] Diagnostic Test Pending 2021-08-26 00:00:00 test, urine [code = test, urine] [facility] Encounters Start Date/Time End Date/Time Encounter Type Admission Type Attending Clinicians Care Facility Care Department Encounter ID Source 2023-10-05 18:29:00 2023-10-05 22:45:00 Emergency ER Astrid Cruz [facility] [id number] [facility] 2023-10-05 18:29:00 2023-10-05 22:45:00 emergency [facility] [id number] 2023-10-04 00:00:00 2023-10-04 00:00:00 Outpatient IHDE_G [facility] [id number] [facility] 2023-10-03 15:28:00 2023-10-03 15:28:00 Outpatient NIGEL SWAN [facility] [id number] [facility] 2023-08-24 00:00:00 2023-08-24 00:00:00 Outpatient IHDE_G [facility] [id number] [facility] 2023-08-24 00:00:00 2023-08-24 00:00:00 Outpatient IHDE_G [facility] [id number] [facility] 2023-08-24 00:00:00 2023-08-24 00:00:00 Outpatient IHDE_G MM[facility] MMG [id number] [facility] 2023-06-29 10:30:00 2023-06-29 13:33:00 emergency [id number] 2023-06-29 10:30:00 2023-06-29 13:33:00 Emergency FERCHO CARBONE [facility] [id number] [facility] 2023-02-15 00:00:00 2023-02-15 00:00:00 Outpatient IHDE_G MM[facility] MM[facility] [id number] [facility] 2023-02-15 00:00:00 2023-02-15 00:00:00 Outpatient IHDE_G MM[facility] MMG [id number] [facility] 2022-09-07 12:28:00 2022-09-07 14:55:00 emergency [id number] 2022-09-07 12:28:00 2022-09-07 14:55:00 Emergency ER SABINA PRIEST [facility] [id number] [facility] 2022-02-17 05:23:00 2022-02-17 05:23:00 Outpatient CHARO CAMARILLO [facility] [id number] [facility] 2022-01-05 19:47:00 2022-01-05 21:49:00 Emergency ER MELINA CARMEN [facility] [id number] [facility] 2021-10-17 19:59:00 2021-10-17 21:26:00 Emergency X RAYMUNDO HAMILTON [facility] ERT [id number] [facility] 2021-10-17 19:59:00 2021-10-17 21:26:00 Emergency Raymundo Hamilton [facility] [id number] [facility] 2021-10-14 22:52:00 2021-10-15 02:13:00 Emergency ER CLAUS DAVIDSON [facility] [id number] [facility] 2021-08-26 16:40:00 2021-08-26 16:40:00 Outpatient GIANCARLO BARLOW [facility] [id number] [facility] 2021-08-26 05:01:00 2021-08-26 05:01:00 Outpatient IHDE_G [facility] [id number] [facility] 2021-08-26 00:00:00 2021-08-26 00:00:00 PARESH Banuelos-BC: [address], [place] [address] , Ph. [phone] [facility] [id number] [facility] 2021-05-06 02:27:00 2021-05-06 02:27:00 Outpatient IHDE_G MMG MMG [id number] [facility] 2020-11-06 03:03:00 2020-11-06 03:03:00 Outpatient IHDE_G MMG MMG [id number] [facility] 2020-11-06 03:03:00 2020-11-06 03:03:00 Outpatient IHDE_G MMG MMG [id number] [facility] 2020-11-06 00:00:00 2020-11-06 00:00:00 Jessica Rosario MD: [address], [place] [address] , Ph. [phone] [facility] [id number] [facility] 2020-10-21 23:39:00 2020-10-22 19:10:00 Inpatient ER JESSICA ROSARIO [facility] [id number] [facility] 2020-10-21 04:11:00 2020-10-21 04:11:00 Outpatient IHDE_G MMG MMG [id number] [facility] 2020-10-21 04:11:00 2020-10-21 04:11:00 Outpatient IHDE_G MM[facility] MMG [id number] [facility] 2020-10-21 04:11:00 2020-10-21 04:11:00 Outpatient IHDE_G MMG MMG [id number] [facility] 2020-10-21 00:00:00 2020-10-21 00:00:00 Jessica Rosario MD: [address], [place] [address] , Ph. [phone] [facility] [id number] [facility] 2020-09-17 02:39:00 2020-09-17 02:39:00 Outpatient Hawkins_M MM[facility] MMG [id number] [facility] 2020-07-08 01:06:00 2020-07-08 04:18:00 Emergency ER RIZWAN CAI [facility] [id number] [facility] 2020-05-21 09:09:00 2020-05-21 09:09:00 Outpatient Hawkins_M MMG MMG [id number] [facility] 2020-05-21 00:00:00 2020-05-21 00:00:00 Octavia Christensen, NP: [address], [place] [address] , Ph. [phone] MM[facility] [id number] [facility] 2020-02-27 05:00:00 2020-02-27 05:00:00 Outpatient Hawkins_M MMG MMG [id number] [facility] 2020-02-27 00:00:00 2020-02-27 00:00:00 Lacey Black, BREEDER SERVICE TECHNICIAN: [address], [place] [address] , Ph. MMG [facility] [id number] [facility] 2020-01-29 06:24:00 2020-01-29 06:24:00 Outpatient Rutledge_L MMG MMG [id number] [facility] 2020-01-29 00:00:00 2020-01-29 00:00:00 Mine Lennon BREEDER SERVICE TECHNICIAN: [address], [place] [address] , Ph. MMG [facility] [id number] [facility] 2020-01-15 01:35:00 2020-01-15 01:35:00 Outpatient Rutledge_L MMG MMG [id number] [facility] 2020-01-01 03:56:00 2020-01-01 03:56:00 Outpatient Rutledge_L MMG MMG [id number] [facility] 2019-12-21 12:20:00 2019-12-21 12:20:00 Outpatient Rutledge_L MMG MMG [id number] [facility] 2019-12-21 12:20:00 2019-12-21 12:20:00 Outpatient Rutledge_L MMG MMG [id number] [facility] 2019-12-09 09:52:00 2019-12-09 09:52:00 Outpatient Rutledge_L MMG MMG [id number] [facility] 2019-12-06 03:24:00 2019-12-06 03:24:00 Outpatient Rutledge_L MMG MMG [id number] [facility] 2019-12-06 00:00:00 2019-12-06 00:00:00 Matthew Kumar MD: [address] [place] [address] , Ph. [phone] MM[facility] [id number] [facility] 2019-11-29 04:32:00 2019-11-29 04:32:00 Outpatient Rutledge_L MMG MMG [id number] [facility] 2019-11-29 04:32:00 2019-11-29 04:32:00 Outpatient Rutledge_L MMG MMG [id number] [facility] 2019-11-27 10:15:00 2019-11-27 10:15:00 Outpatient Rutledge_L MMG MMG [id number] [facility] 2019-11-16 12:10:00 2019-11-16 12:10:00 Outpatient Rutledge_L MMG MMG [id number] [facility] 2019-11-14 05:05:00 2019-11-16 09:36:00 Inpatient MATTHEW FABIAN [facility] MOB [id number] [facility] 2019-11-15 01:23:00 2019-11-15 01:23:00 Outpatient Rutledge_L MMG MMG [id number] [facility] 2019-11-12 03:48:00 2019-11-12 03:48:00 Outpatient Rutledge_L MMG MMG [id number] [facility] 2019-11-12 00:00:00 2019-11-12 00:00:00 Matthew Kumar MD: [address] [place] [address] , Ph. [phone] [facility] [id number] [facility] 2019-11-11 03:49:00 2019-11-11 05:45:00 Emergency ER MATTHEW KUMAR [facility] [id number] [facility] 2019-11-08 11:27:00 2019-11-08 11:27:00 Outpatient Rutledge_L MMG MMG [id number] [facility] 2019-11-08 11:27:00 2019-11-08 11:27:00 Outpatient Rutledge_L MMG MMG [id number] [facility] [facility] 2019-11-07 08:37:00 2019-11-07 13:00:00 Emergency ER MATTHEW KUMAR [facility] [id number] [facility] 2019-11-07 04:18:00 2019-11-07 04:18:00 Outpatient Rutledge_L [facility] [place] [id number] 0108 [facility] 2019-11-05 04:31:00 2019-11-05 04:31:00 Outpatient Rutledge_L MMG MMG [id number] 0106 [facility] 2019-11-05 00:00:00 2019-11-05 00:00:00 Matthew Kumar MD: [address] [facility] [address] [place] [address] , Ph. [phone] [facility] [id number] [facility] 2019-11-01 10:17:00 2019-11-01 10:17:00 Outpatient Rutledge_L MMG MM[place] [id number] 0103 [facility] 2019-11-01 09:20:00 2019-11-01 09:20:00 Outpatient Hiwot [facility] [id number] 0102 [facility] 2019-10-29 00:00:00 2019-10-29 00:00:00 Matthew Kumar MD: [address], [place] [address] , Ph. [phone] MM[facility] - OBGYN [id number] [facility] 2019-10-15 00:00:00 2019-10-15 00:00:00 Nigel Sexton MD: [address], [place] [address] , Ph. [phone] [facility] [id number] [facility] 2019-10-08 00:00:00 2019-10-08 00:00:00 JUD Centeno: [address], [place] [address] , Ph. [phone] [facility] [id number] [facility] 2019-09-03 09:53:00 2019-09-03 09:53:00 Outpatient EL MATTHEW KUMAR [facility] [id number] [facility] 2019-09-03 00:00:00 2019-09-03 00:00:00 Matthew Kumar MD: [address], [place] [address] , Ph. [phone] [facility] [id number] [facility] 2019-08-31 22:52:00 2019-09-01 00:15:00 Emergency ER MATTHEW KUMAR [facility] [id number] [facility] 2019-08-06 00:00:00 2019-08-06 00:00:00 Nigel Sexton MD: [address], [place] [address] , Ph. [phone] [facility] [id number] [facility] 2019-07-09 16:30:00 2019-07-09 16:30:00 Outpatient MATTHEW FABIAN [facility] [id number] [facility] 2019-07-09 00:00:00 2019-07-09 00:00:00 Matthew Kumar MD: [address], [place] [address] , Ph. [phone] [facility] [id number] [facility] 2019-06-11 10:17:00 2019-06-11 10:17:00 Outpatient OCTAVIA CHING [facility] [id number] [facility] 2019-06-11 00:00:00 2019-06-11 00:00:00 Octavia Christensen [facility]: [address], [address], [place] [address] , Ph. [phone] [facility] [id number] [facility] 2019-05-14 00:00:00 2019-05-14 00:00:00 Nigel Sexton MD: [address] [facility] [address], [address], [place] [address] , Ph. [phone] MM[facility] - OBGYN [id number] [facility] 2019-05-06 22:19:00 2019-05-07 01:55:00 Emergency ER CARMITA MISTY [facility] [id number] [facility] 2019-04-19 14:57:00 2019-04-19 14:57:00 Outpatient NIGEL SWAN [facility] [id number] [facility] 2019-04-19 00:00:00 2019-04-19 00:00:00 Nigel Sexton MD: [address], [address], [place] [address] , Ph. [phone] MMG [facility] - [facility] OBGY [id number] [facility] 2019-04-01 21:03:00 2019-04-02 03:05:00 Emergency ER XAVIER MORROW [facility] [id number] [facility] 2018-04-11 10:04:00 2018-04-11 13:47:00 Emergency ER JUAN SHAH [facility] [id number] [facility] 2018-04-06 10:41:00 2018-04-06 10:41:00 Outpatient EL DARNELLGUALBERTO MASTERS [facility] [id number] [facility] 2018-02-25 22:56:00 2018-02-26 00:20:00 Emergency ER MATTHEW KUMAR [facility] [id number] [facility] Results Test Description Test Time Test Comments Results Result Co mments Source Surgical pathology study 2020-10-22 01:12:00 Results [facility] SARS-CoV-2 (COVID-19) RNA [Presence] in Respiratory specimen by FELIZ with probe detection 2020-10-21 09:55:00 [facility] [id number] 08:15:00* Test Item Value Reference Range Interpretation Comme nts Color of Urine by Auto (test code = 48851-9) colorless Appearance of Urine (test co de = 5767-9) clear clear Glucose [Presence] in Urine by Automated test strip (test code = 50774-0) negative negative Bilirubin.total [Mass/volume ] in Urine (test code = 1978-6) negative negative Ketones [Mass/volume] in Uri ne by Automated test strip (test code = 63702-8) negative negative Specific gravity of Urine by Automated test strip (test code = 47865-2) 1.007 1.003-1.030 blood urine (test code = blo od urine) negative negative pH of Urine (test code = 2756-5) 6.500 5-9 protein urine (UA) (test cod e = protein urine (UA)) negative negative Urobilinogen [Presence] in Urine (test code = 66225-8) normal 0.2-1.0 Nitrite [Presence] in Urine by Test strip (test code = 5802-4) negative negative Leukocyte esterase [Presence ] in Urine by Automated test strip (test code = 36969-7) =2 negative H Erythrocytes [#/volume] in Urine by Automated count (test code = 798-9) <1 0-5 Leukocytes [#/area] in Urine sediment by Automated count (test code = 98105-5) =6-10 0-5 H Epithelial cells [Presence] in Urine sediment by Light microscopy (test code = 04854-7) =1-5 0-5 Bacteria identified in Urine by Culture (test code = 630-4) trace none detect Casts [#/area] in Urine sediment by Automated count (test code = 64432-4) none detected none detect urine culture added? (test c ode = urine culture added?) yes [facility] Urine by [id number] 08:15:00* Test Item Value Reference Range Interpretation Comme nts Bacteria identified in Urine by Culture (test code = 630-4) no growth after 48 hrs. [facility] W Auto Differential panel - [id number] 07:57:00 * Test Item Value Reference Range Interpretation Comme nts white blood count (test code = white blood count) 6.4 K/uL 4.0-11.5 red blood count (test code = red blood count) 4.84 M/uL 3.80-5.20 hemoglobin (test code = hemoglobin) 12.8 g/dL 10.5-15.7 hematocrit (test code = hematocrit) 40.5 % 34.0-50.0 MCV [Entitic volume] (test c ode = 99425-5) 83.7 fL 86-100 L mean corpuscular hemoglobin (test code = mean corpuscular hemoglobin) 26.4 pg 26.2-33.4 mean corpuscular HGB conc (t est code = mean corpuscular HGB conc) 31.6 g/dL 30-34 red cell distribution width (test code = red cell distribution width) 12.0 % 12.0-15.5 platelet count (test code = platelet count) 267 K/uL 165-450 mean platelet volume (test c ode = mean platelet volume) 9.1 fL 9.4-12.6 L Segmented neutrophils/100 leukocytes in Blood (test code = 12169-0) 67.0 % 44.4-80.1 Immature granulocytes [#/vol ume] in Blood (test code = 26291-1) 0.0 K/uL 0.0-0.03 lymphocyte% (test code = lymphocyte%) 23.7 % 10.0-50.0 mono % (test code = mono %) 5.8 % 3.6-12.0 eos % (test code = eos %) 3.0 % 0.0-5.4 Basophils/100 leukocytes in Unspecified specimen (test code = 39796-7) 0.3 % 0.1-1.2 Band form neutrophils [#/vol ume] in Blood (test code = 74399-6) 4.26 K/uL 1.56-6.13 Lymphocytes [#/volume] in Unspecified specimen by Automated count (test code = 21671-2) 1.5 K/uL 1.18-3.74 mono # (test code = mono #) 0.37 K/uL 0.24-0.86 eos # (test code = eos #) 0.19 K/uL 0.04-0.36 basophil # (test code = baso charles #) 0.02 K/uL 0.01-0.08 NRBC% (test code = NRBC%) 0 /100 WBC 0-0.2 NRBC# (test code = NRBC#) 0 K/uL [facility] panel, method unspecified - [id number] 07:57:00NeutrophilsBandLymphocyteAtypical LymphMonocyteEosinophilBasophilPlatelet EstimatePlatelet Morpholog yAnisocytosisRouleNorthwest Mississippi Medical CenterComprehensive metabolic 2000 panel - Serum or [id number] 07:57:00* Test Item Value Reference Range Interpretation Comme nts glucose (test code = glucose) 82 mg/dL 74-106 Urea nitrogen [Mass/volume] in Serum or Plasma (test code = 3094-0) 11 mg/dL 6-20 osmolality calculated,serum (test code = osmolality calculated,serum) 274 mOsm/kg 280-300 L creatinine (test code = creatinine) 0.7 mg/dL 0.50-0.90 glomerular filtration rate ( test code = glomerular filtration rate) >60.00 Urea nitrogen/Creatinine [Ma ss Ratio] in Serum or Plasma (test code = 3097-3) 15.7 12-20 sodium level (test code = so dium level) 138 mmol/L 135-145 Potassium [Moles/volume] in Body fluid (test code = 2821-7) 3.9 mmol/L 3.5-5.2 chloride level (test code = chloride level) 103 mmol/L 98-108 CO2 (test code = CO2) 25 mmol/L 21-32 anion gap (test code = anion gap) 13.9 mEq/L 12-20 calcium level (test code = calcium level) 9.3 mg/dL 8.6-10.0 total protein (test code = t otal protein) 6.8 g/dL 6.6-8.7 albumin (test code = albumin) 4.4 g/dL 3.5-5.2 globulin (test code = globulin) 2.4 gm/dL A/G ratio (test code = A/G ratio) 1.8 >1.0 bilirubin,total (test code = bilirubin,total) <0.3 0.0-1.2 AST/SGOT (test code = AST/SGOT) 12 U/L 15-32 L Alanine aminotransferase [Enzymatic activity/volume] in Serum or Plasma (test code = 1742-6) 10 U/L 0-33 Alkaline phosphatase [Enzyma tic activity/volume] in Serum or Plasma (test code = 6768-6) 62 U/L 35-105 [facility] Hospital[facility]ase [Enzymatic activity/volume] in Serum or Plasma 2020-10-21 07:57:00* Test Item Value Reference Range Interpretation Comme nts lipase (test code = lipase) 43 U/L 13-60 [facility] HospitalUrinalysis macro (dipstick) panel - [id number] 14:11:11* Test Item Value Reference Range Interpretation Comme nts Leukocytes (test code = Leukocytes) Small Nitrite (test code = Nitrite) negative Urobilinogen (test code = Urobilinogen) .2 Protein (test code = Protein) Negative pH (test code = pH) 6.0 Blood (test code = Blood) Moderate Specific Aurora (test code = Specific Aurora) 1.025 Ketone (test code = Ketone) Negative Bilirubin (test code = Bilirubin) Negative Glucose (test code = Glucose) Negative Appearance (test code = Appearance) Clear Color (test code = Color) Yellow [facility] W Auto Differential panel - [id number] 03:57:00 * Test Item Value Reference Range Interpretation Comme nts white blood count (test code = white blood count) 8.7 K/uL 4.0-11.5 red blood count (test code = red blood count) 3.38 M/uL 3.80-5.20 L hemoglobin (test code = hemoglobin) 8.9 g/dL 10.5-15.7 L hematocrit (test code = hematocrit) 28.2 % 34.0-50.0 L Erythrocyte mean corpuscular volume [Entitic volume] (test code = 19372-5) 83.4 fL 86-100 L mean corpuscular hemoglobin (test code = mean corpuscular hemoglobin) 26.3 pg 26.2-33.4 mean corpuscular HGB conc (t est code = mean corpuscular HGB conc) 31.6 g/dL 30-34 red cell distribution width (test code = red cell distribution width) 13.2 % 12.0-15.5 platelet count (test code = platelet count) 193 K/uL 165-450 mean platelet volume (test c ode = mean platelet volume) 10.3 fL 9.4-12.6 Neutrophils.segmented/100 leukocytes in Blood (test code = 20194-7) 75.0 % 44.4-80.1 Granulocytes Immature [#/vol ume] in Blood (test code = 82173-0) 0.0 K/uL 0.0-0.03 H lymphocyte% (test code = lymphocyte%) 14.7 % 10.0-50.0 mono % (test code = mono %) 8.3 % 3.6-12.0 eos % (test code = eos %) 1.3 % 0.0-5.4 Basophils/100 leukocytes in Unspecified specimen (test code = 14689-9) 0.2 % 0.1-1.2 Neutrophils.band form [#/vol ume] in Blood (test code = 99077-4) 6.51 K/uL 1.56-6.13 H Lymphocytes [#/volume] in Unspecified specimen by Automated count (test code = 74856-2) 1.3 K/uL 1.18-3.74 mono # (test code = mono #) 0.72 K/uL 0.24-0.86 eos # (test code = eos #) 0.11 K/uL 0.04-0.36 basophil # (test code = baso charles #) 0.02 K/uL 0.01-0.08 NRBC% (test code = NRBC%) 0 /100 WBC 0-0.2 NRBC# (test code = NRBC#) 0 K/uL [facility] Hospitaldifferential panel, [id number] 03:57:00 NeutrophilsBandLymphocyteAtypical LymphMonocyteBasophilPlatelet EstimateDifferential comment-[facility] HospitalCB W Auto Differential panel - [id number] 07:09:00* Test Item Value Reference Range Interpretation Comme nts white blood count (test code = white blood count) 8.2 K/uL 4.0-11.5 red blood count (test code = red blood count) 3.44 M/uL 3.80-5.20 L hemoglobin (test code = hemoglobin) 9.1 g/dL 10.5-15.7 hematocrit (test code = hematocrit) 28.5 % 34.0-50.0 Erythrocyte mean corpuscular volume [Entitic volume] (test code = 63652-1) 82.8 fL 86-100 L mean corpuscular hemoglobin (test code = mean corpuscular hemoglobin) 26.5 pg 26.2-33.4 mean corpuscular HGB conc (t est code = mean corpuscular HGB conc) 31.9 g/dL 30-34 red cell distribution width (test code = red cell distribution width) 13.1 % 12.0-15.5 platelet count (test code = platelet count) 182 K/uL 165-450 mean platelet volume (test c ode = mean platelet volume) 9.9 fL 9.4-12.6 Neutrophils.segmented/100 leukocytes in Blood (test code = 17436-5) 80.5 % 44.4-80.1 H Granulocytes Immature [#/vol ume] in Blood (test code = 35956-9) 0.0 K/uL 0.0-0.03 lymphocyte% (test code = lymphocyte%) 12.0 % 10.0-50.0 mono % (test code = mono %) 6.6 % 3.6-12.0 eos % (test code = eos %) 0.4 % 0.0-5.4 Basophils/100 leukocytes in Unspecified specimen (test code = 26751-7) 0.1 % 0.1-1.2 Neutrophils.band form [#/vol ume] in Blood (test code = 21748-3) 6.60 K/uL 1.56-6.13 H Lymphocytes [#/volume] in Unspecified specimen by Automated count (test code = 46927-8) 1.0 K/uL 1.18-3.74 L mono # (test code = mono #) 0.54 K/uL 0.24-0.86 eos # (test code = eos #) 0.03 K/uL 0.04-0.36 L basophil # (test code = baso charles #) 0.01 K/uL 0.01-0.08 NRBC% (test code = NRBC%) 0 /100 WBC 0-0.2 NRBC# (test code = NRBC#) 0 K/uL [facility] W Auto Differential panel - [id number] 04:18:00 * Test Item Value Reference Range Interpretation Comme nts white blood count (test code = white blood count) 9.6 K/uL 4.0-11.5 red blood count (test code = red blood count) 4.55 M/uL 3.80-5.20 hemoglobin (test code = hemoglobin) 11.7 g/dL 10.5-15.7 hematocrit (test code = hematocrit) 37.6 % 34.0-50.0 Erythrocyte mean corpuscular volume [Entitic volume] (test code = 26125-8) 82.6 fL 86-100 L mean corpuscular hemoglobin (test code = mean corpuscular hemoglobin) 25.7 pg 26.2-33.4 L mean corpuscular HGB conc (t est code = mean corpuscular HGB conc) 31.1 g/dL 30-34 red cell distribution width (test code = red cell distribution width) 13.1 % 12.0-15.5 platelet count (test code = platelet count) 278 K/uL 165-450 mean platelet volume (test c ode = mean platelet volume) 10.3 fL 9.4-12.6 Neutrophils.segmented/100 leukocytes in Blood (test code = 38435-8) 70.3 % 44.4-80.1 Granulocytes Immature [#/vol ume] in Blood (test code = 89537-5) 0.0 K/uL 0.0-0.03 lymphocyte% (test code = lymphocyte%) 20.9 % 10.0-50.0 mono % (test code = mono %) 6.6 % 3.6-12.0 eos % (test code = eos %) 1.6 % 0.0-5.4 Basophils/100 leukocytes in Unspecified specimen (test code = 23177-3) 0.2 % 0.1-1.2 Neutrophils.band form [#/vol ume] in Blood (test code = 14756-0) 6.77 K/uL 1.56-6.13 H Lymphocytes [#/volume] in Unspecified specimen by Automated count (test code = 59828-6) 2.0 K/uL 1.18-3.74 mono # (test code = mono #) 0.64 K/uL 0.24-0.86 eos # (test code = eos #) 0.15 K/uL 0.04-0.36 basophil # (test code = baso charles #) 0.02 K/uL 0.01-0.08 NRBC% (test code = NRBC%) 0 /100 WBC 0-0.2 NRBC# (test code = NRBC#) 0 K/uL [facility] and Indirect antibody screen panel - Blood 2019-11-14 04:18:00* Test Item Value Reference Range Interpretation Comme nts Rh [Type] in Blood (test cod e = 87360-4) 3+ ABO and Rh group panel - Blo od (test code = 06253-9) [facility] Group[facility] [Presence] in Serum by [id number] 04:18:00* Test Item Value Reference Range Interpretation Comme nts Reagin Ab [Presence] in Seru m by RPR (test code = 38237-8) nonreactive nonreactive [facility] GroupHepatitis B virus surface Ag [Presence] in Serum 2019-11-14 04:18:00* Test Item Value Reference Range Interpretation Comme nts .hepatitis B surface antigen (test code = .hepatitis B surface antigen) negative negative [facility] GroupUrinalysis macro (dipstick) panel - [id number] 14:34:54* Test Item Value Reference Range Interpretation Comme nts Leukocytes (test code = Leukocytes) Small Nitrite (test code = Nitrite) negative Urobilinogen (test code = Urobilinogen) .2 Protein (test code = Protein) Trace pH (test code = pH) 6.0 Blood (test code = Blood) Small Specific Aurora (test code = Specific Aurora) 1.030 Ketone (test code = Ketone) Negative Bilirubin (test code = Bilirubin) Negative Glucose (test code = Glucose) Negative Appearance (test code = Appearance) Clear Color (test code = Color) Yellow [facility] GroupUrinalysis macro (dipstick) panel - [id number] 14:34:54* Test Item Value Reference Range Interpretation Comme nts Leukocytes (test code = Leukocytes) Small Nitrite (test code = Nitrite) negative Urobilinogen (test code = Urobilinogen) .2 Protein (test code = Protein) Trace pH (test code = pH) 6.0 Blood (test code = Blood) Small Specific Aurora (test code = Specific Aurora) 1.030 Ketone (test code = Ketone) Negative Bilirubin (test code = Bilirubin) Negative Glucose (test code = Glucose) Negative Appearance (test code = Appearance) Clear Color (test code = Color) Yellow [facility] HospitalWzdaiVnnhp-6-Yqiptmiomqpwi.placental [Presence] in Vaginal [id number] 03:20:00* Test Item Value Reference Range Interpretation Comme nts Negeo-2-Utxruakzhpqtk.placen lai [Presence] in Vaginal fluid (test code = 39218-4) negative neg [facility] W Auto Differential panel - [id number] 08:18:00 * Test Item Value Reference Range Interpretation Comme nts white blood count (test code = white blood count) 8.5 K/uL 4.0-11.5 red blood count (test code = red blood count) 4.23 M/uL 3.80-5.20 hemoglobin (test code = hemoglobin) 11.0 g/dL 10.5-15.7 hematocrit (test code = hematocrit) 35.0 % 34.0-50.0 Erythrocyte mean corpuscular volume [Entitic volume] (test code = 81218-6) 82.7 fL 86-100 L mean corpuscular hemoglobin (test code = mean corpuscular hemoglobin) 26.0 pg 26.2-33.4 L mean corpuscular HGB conc (t est code = mean corpuscular HGB conc) 31.4 g/dL 30-34 red cell distribution width (test code = red cell distribution width) 12.9 % 12.0-15.5 platelet count (test code = platelet count) 252 K/uL 165-450 mean platelet volume (test c ode = mean platelet volume) 10.0 fL 9.4-12.6 Neutrophils.segmented/100 leukocytes in Blood (test code = 88669-1) 76.3 % 44.4-80.1 Granulocytes Immature [#/vol ume] in Blood (test code = 64698-3) 0.1 K/uL 0.0-0.03 H lymphocyte% (test code = lymphocyte%) 15.2 % 10.0-50.0 mono % (test code = mono %) 6.3 % 3.6-12.0 eos % (test code = eos %) 1.4 % 0.0-5.4 Basophils/100 leukocytes in Unspecified specimen (test code = 81079-0) 0.2 % 0.1-1.2 Neutrophils.band form [#/vol ume] in Blood (test code = 08840-2) 6.51 K/uL 1.56-6.13 H Lymphocytes [#/volume] in Unspecified specimen by Automated count (test code = 67440-0) 1.3 K/uL 1.18-3.74 mono # (test code = mono #) 0.54 K/uL 0.24-0.86 eos # (test code = eos #) 0.12 K/uL 0.04-0.36 basophil # (test code = baso charles #) 0.02 K/uL 0.01-0.08 NRBC% (test code = NRBC%) 0 /100 WBC 0-0.2 NRBC# (test code = NRBC#) 0 K/uL [facility] W Auto Differential panel - [id number] 08:18:00 * Test Item Value Reference Range Interpretation Comme nts white blood count (test code = white blood count) 8.5 K/uL 4.0-11.5 red blood count (test code = red blood count) 4.23 M/uL 3.80-5.20 hemoglobin (test code = hemoglobin) 11.0 g/dL 10.5-15.7 hematocrit (test code = hematocrit) 35.0 % 34.0-50.0 Erythrocyte mean corpuscular volume [Entitic volume] (test code = 54096-3) 82.7 fL 86-100 L mean corpuscular hemoglobin (test code = mean corpuscular hemoglobin) 26.0 pg 26.2-33.4 L mean corpuscular HGB conc (t est code = mean corpuscular HGB conc) 31.4 g/dL 30-34 red cell distribution width (test code = red cell distribution width) 12.9 % 12.0-15.5 platelet count (test code = platelet count) 252 K/uL 165-450 mean platelet volume (test c ode = mean platelet volume) 10.0 fL 9.4-12.6 Neutrophils.segmented/100 leukocytes in Blood (test code = 21188-2) 76.3 % 44.4-80.1 Granulocytes Immature [#/vol ume] in Blood (test code = 64475-4) 0.1 K/uL 0.0-0.03 H lymphocyte% (test code = lymphocyte%) 15.2 % 10.0-50.0 mono % (test code = mono %) 6.3 % 3.6-12.0 eos % (test code = eos %) 1.4 % 0.0-5.4 Basophils/100 leukocytes in Unspecified specimen (test code = 49760-5) 0.2 % 0.1-1.2 Neutrophils.band form [#/vol ume] in Blood (test code = 34681-0) 6.51 K/uL 1.56-6.13 H Lymphocytes [#/volume] in Unspecified specimen by Automated count (test code = 72261-8) 1.3 K/uL 1.18-3.74 mono # (test code = mono #) 0.54 K/uL 0.24-0.86 eos # (test code = eos #) 0.12 K/uL 0.04-0.36 basophil # (test code = baso charles #) 0.02 K/uL 0.01-0.08 NRBC% (test code = NRBC%) 0 /100 WBC 0-0.2 NRBC# (test code = NRBC#) 0 K/uL [facility] Hospital[facility]inalysis macro (dipstick) panel - [id number] 14:57:02* Test Item Value Reference Range Interpretation Comme nts Leukocytes (test code = Leukocytes) Negative Nitrite (test code = Nitrite) negative Urobilinogen (test code = Urobilinogen) .2 Protein (test code = Protein) Trace pH (test code = pH) 6.0 Blood (test code = Blood) Negative Specific Aurora (test code = Specific Aurora) 1.030 Ketone (test code = Ketone) Negative Bilirubin (test code = Bilirubin) Negative Glucose (test code = Glucose) Negative Appearance (test code = Appearance) Clear Color (test code = Color) Yellow [facility] HospitalUrinalysis macro (dipstick) panel - [id number] 14:57:02* Test Item Value Reference Range Interpretation Comme nts Leukocytes (test code = Leukocytes) Negative Nitrite (test code = Nitrite) negative Urobilinogen (test code = Urobilinogen) .2 Protein (test code = Protein) Trace pH (test code = pH) 6.0 Blood (test code = Blood) Negative Specific Aurora (test code = Specific Aurora) 1.030 Ketone (test code = Ketone) Negative Bilirubin (test code = Bilirubin) Negative Glucose (test code = Glucose) Negative Appearance (test code = Appearance) Clear Color (test code = Color) Yellow [facility] HospitalUrinalysis macro (dipstick) panel - [id number] 14:57:02* Test Item Value Reference Range Interpretation Comme nts Leukocytes (test code = Leukocytes) Negative Nitrite (test code = Nitrite) negative Urobilinogen (test code = Urobilinogen) .2 Protein (test code = Protein) Trace pH (test code = pH) 6.0 Blood (test code = Blood) Negative Specific Aurora (test code = Specific Aurora) 1.030 Ketone (test code = Ketone) Negative Bilirubin (test code = Bilirubin) Negative Glucose (test code = Glucose) Negative Appearance (test code = Appearance) Clear Color (test code = Color) Yellow [facility] HospitalUrinalysis macro (dipstick) panel - [id number] 14:53:40* Test Item Value Reference Range Interpretation Comme nts Leukocytes (test code = Leukocytes) Small Nitrite (test code = Nitrite) negative Urobilinogen (test code = Urobilinogen) .2 Protein (test code = Protein) Negative pH (test code = pH) 6.5 Blood (test code = Blood) Negative Specific Aurora (test code = Specific Aurora) 1.025 Ketone (test code = Ketone) Negative Bilirubin (test code = Bilirubin) Negative Glucose (test code = Glucose) Negative Appearance (test code = Appearance) Clear Color (test code = Color) Yellow [facility] Hospital[facility]inal[facility] macro (dipstick) panel - [id number] 14:53:40* Test Item Value Reference Range Interpretation Comme nts Leukocytes (test code = Leukocytes) Small Nitrite (test code = Nitrite) negative Urobilinogen (test code = Urobilinogen) .2 Protein (test code = Protein) Negative pH (test code = pH) 6.5 Blood (test code = Blood) Negative Specific Aurora (test code = Specific Aurora) 1.025 Ketone (test code = Ketone) Negative Bilirubin (test code = Bilirubin) Negative Glucose (test code = Glucose) Negative Appearance (test code = Appearance) Clear Color (test code = Color) Yellow [facility] HospitalUrinal[facility] macro (dipstick) panel - [id number] 14:53:40* Test Item Value Reference Range Interpretation Comme nts Leukocytes (test code = Leukocytes) Small Nitrite (test code = Nitrite) negative Urobilinogen (test code = Urobilinogen) .2 Protein (test code = Protein) Negative pH (test code = pH) 6.5 Blood (test code = Blood) Negative Specific Aurora (test code = Specific Aurora) 1.025 Ketone (test code = Ketone) Negative Bilirubin (test code = Bilirubin) Negative Glucose (test code = Glucose) Negative Appearance (test code = Appearance) Clear Color (test code = Color) Yellow [facility] GroupSt[facility] agalactiae [Presence] in Unspecified specimen by Organism specific [id number] 00:00:00* Test Item Value Reference Range Interpretation Comme nts group B streptococcus (gbs) by real-time PCR (test code = group B streptococcus (gbs) by real-time PCR) negative [facility] GroupStreptococcus agalactiae [Presence] in Unspecified specimen by Organism specific [id number] 00:00:00* Test Item Value Reference Range Interpretation Comme nts group B streptococcus (gbs) by real-time PCR (test code = group B streptococcus (gbs) by real-time PCR) negative [facility] GroupChlamydia trachomatis+Neisseria gonorrhoeae DNA [Presence] in Unspecified specimen by Probe and target amplification method 2019-10-17 00:00:00* Test Item Value Reference Range Interpretation Comme nts chlamydia trachomatis by giovanny l-time PCR (reflex to azithromycin resistance by pyrosequencing) (test code = chlamydia trachomatis by real-time PCR (reflex to azithromycin resistance by pyrosequencing)) negative neisseria gonorrhoeae by giovanny l-time PCR (reflex to antibiotic resistance by molecular analysis) (test code = neisseria gonorrhoeae by real-time PCR (reflex to antibiotic resistance by molecular analysis)) negative [facility] GroupChlamydia trachomatis+Neisseria gonorrhoeae DNA [Presence] in Unspecified specimen by Probe and target amplification method 2019-10-17 00:00:00* Test Item Value Reference Range Interpretation Comme nts chlamydia trachomatis by giovanny l-time PCR (reflex to azithromycin resistance by pyrosequencing) (test code = chlamydia trachomatis by real-time PCR (reflex to azithromycin resistance by pyrosequencing)) negative neisseria gonorrhoeae by giovanny l-time PCR (reflex to antibiotic resistance by molecular analysis) (test code = neisseria gonorrhoeae by real-time PCR (reflex to antibiotic resistance by molecular analysis)) negative [facility] GroupUrinal[facility] macro (dipstick) panel - [id number] 15:25:33* Test Item Value Reference Range Interpretation Comme nts Leukocytes (test code = Leukocytes) Small Nitrite (test code = Nitrite) negative Urobilinogen (test code = Urobilinogen) .2 Protein (test code = Protein) Negative pH (test code = pH) 7.0 Blood (test code = Blood) Negative Specific Aurora (test code = Specific Aurora) 1.020 Ketone (test code = Ketone) Negative Bilirubin (test code = Bilirubin) Negative Glucose (test code = Glucose) Negative Appearance (test code = Appearance) Clear Color (test code = Color) Yellow [facility]Ur[facility] macro (dipstick) panel - [id number] 15:25:33* Test Item Value Reference Range Interpretation Comme nts Leukocytes (test code = Leukocytes) Small Nitrite (test code = Nitrite) negative Urobilinogen (test code = Urobilinogen) .2 Protein (test code = Protein) Negative pH (test code = pH) 7.0 Blood (test code = Blood) Negative Specific Aurora (test code = Specific Aurora) 1.020 Ketone (test code = Ketone) Negative Bilirubin (test code = Bilirubin) Negative Glucose (test code = Glucose) Negative Appearance (test code = Appearance) Clear Color (test code = Color) Yellow [facility] HospitalUr[facility] macro (dipstick) panel - [id number] 15:25:33* Test Item Value Reference Range Interpretation Comme nts Leukocytes (test code = Leukocytes) Small Nitrite (test code = Nitrite) negative Urobilinogen (test code = Urobilinogen) .2 Protein (test code = Protein) Negative pH (test code = pH) 7.0 Blood (test code = Blood) Negative Specific Aurora (test code = Specific Aurora) 1.020 Ketone (test code = Ketone) Negative Bilirubin (test code = Bilirubin) Negative Glucose (test code = Glucose) Negative Appearance (test code = Appearance) Clear Color (test code = Color) Yellow [facility] HospitalUr[facility]ysis macro (dipstick) panel - [id number] 15:25:33* Test Item Value Reference Range Interpretation Comme nts Leukocytes (test code = Leukocytes) Small Nitrite (test code = Nitrite) negative Urobilinogen (test code = Urobilinogen) .2 Protein (test code = Protein) Negative pH (test code = pH) 7.0 Blood (test code = Blood) Negative Specific Aurora (test code = Specific Aurora) 1.020 Ketone (test code = Ketone) Negative Bilirubin (test code = Bilirubin) Negative Glucose (test code = Glucose) Negative Appearance (test code = Appearance) Clear Color (test code = Color) Yellow [facility] HospitalGlucose [Mass/volume] in Serum or Plasma --1 hour post dose [id number] 09:48:00* Test Item Value Reference Range Interpretation Comme nts Results (test code = Results) passed 99 [facility] HospitalUrinalysis macro (dipstick) panel - [id number] 09:12:54* Test Item Value Reference Range Interpretation Comme nts Leukocytes (test code = Leukocytes) Small Nitrite (test code = Nitrite) negative Urobilinogen (test code = Urobilinogen) .2 Protein (test code = Protein) Negative pH (test code = pH) 8.0 Blood (test code = Blood) Negative Specific Aurora (test code = Specific Aurora) 1.020 Ketone (test code = Ketone) Negative Bilirubin (test code = Bilirubin) Negative Glucose (test code = Glucose) Negative Appearance (test code = Appearance) Clear Color (test code = Color) Yellow [facility] HospitalCB W Auto Differential panel - [id number] 09:02:00 * Test Item Value Reference Range Interpretation Comme nts white blood count (test code = white blood count) 7.2 K/uL 4.0-11.5 red blood count (test code = red blood count) 4.17 M/uL 3.80-5.20 hemoglobin (test code = hemoglobin) 11.0 g/dL 10.5-15.7 hematocrit (test code = hematocrit) 34.9 % 34.0-50.0 Erythrocyte mean corpuscular volume [Entitic volume] (test code = 84043-8) 83.7 fL 86-100 L mean corpuscular hemoglobin (test code = mean corpuscular hemoglobin) 26.4 pg 26.2-33.4 mean corpuscular HGB conc (t est code = mean corpuscular HGB conc) 31.5 g/dL 30-34 red cell distribution width (test code = red cell distribution width) 12.4 % 12.0-15.5 platelet count (test code = platelet count) 241 K/uL 165-450 mean platelet volume (test c ode = mean platelet volume) 9.9 fL 9.4-12.6 Neutrophils.segmented/100 leukocytes in Blood (test code = 63836-6) 72.0 % 44.4-80.1 Granulocytes Immature [#/vol ume] in Blood (test code = 18528-2) 0.0 K/uL 0.0-0.03 lymphocyte% (test code = lymphocyte%) 18.9 % 10.0-50.0 mono % (test code = mono %) 7.2 % 3.6-12.0 eos % (test code = eos %) 1.4 % 0.0-5.4 Basophils/100 leukocytes in Unspecified specimen (test code = 99280-2) 0.1 % 0.1-1.2 Neutrophils.band form [#/vol ume] in Blood (test code = 07761-2) 5.21 K/uL 1.56-6.13 Lymphocytes [#/volume] in Unspecified specimen by Automated count (test code = 65737-3) 1.4 K/uL 1.18-3.74 mono # (test code = mono #) 0.52 K/uL 0.24-0.86 eos # (test code = eos #) 0.10 K/uL 0.04-0.36 basophil # (test code = baso charles #) 0.01 K/uL 0.01-0.08 NRBC% (test code = NRBC%) 0 /100 WBC 0-0.2 NRBC# (test code = NRBC#) 0 K/uL [facility] HospitalLfsmmGlsqj-3-Kheomotaicsil.placental [Presence] in Vaginal [id number] 00:00:00* Test Item Value Reference Range Interpretation Comme nts Gwjko-5-Qbjbutovttwew.placen lai [Presence] in Vaginal fluid (test code = 59355-5) negative neg [facility] HospitalUrinalysis complete panel - [id number] 00:00:00* Test Item Value Reference Range Interpretation Comme nts Color of Urine by Auto (test code = 63144-2) yellow Appearance of Urine (test co de = 5767-9) clear clear Glucose [Mass/volume] in Uri ne (test code = 2350-7) negative negative bilirubin, urine (test code = bilirubin, urine) negative negative ketone, urine (test code = ketone, urine) negative negative Specific gravity of Urine by Automated test strip (test code = 24922-0) 1.015 1.003-1.030 Hemoglobin [Presence] in Uri ne by Test strip (test code = 5794-3) negative negative pH of Urine (test code = 2756-5) 7.000 5-9 protein urine (UA) (test cod e = protein urine (UA)) negative negative Urobilinogen [Presence] in Urine (test code = 70579-0) 0.2 E.U./dL 0.2-1.0 Nitrite [Presence] in Urine by Test strip (test code = 5802-4) negative negative urine leukocyte esterase (te st code = urine leukocyte esterase) negative negative Erythrocytes [Presence] in Urine (test code = 29280-5) none seen 0-5 WBC, urine (test code = WBC, urine) none seen 0-5 Epithelial cells [Presence] in Urine sediment by Light microscopy (test code = 98653-1) =0-5 0-5 bacteria, urine (test code = bacteria, urine) none detected none detect Casts [#/area] in Urine sediment by Automated count (test code = 84842-9) none seen none detect urine culture added? (test c ode = urine culture added?) no transitional epi cells, urin e (test code = transitional epi cells, urine) =0-5 0-5 [facility] GroupUr[facility] macro (dipstick) panel - [id number] 11:38:32* Test Item Value Reference Range Interpretation Comme nts Leukocytes (test code = Leukocytes) Negative Nitrite (test code = Nitrite) negative Urobilinogen (test code = Urobilinogen) 1 Protein (test code = Protein) 30 pH (test code = pH) 6.0 Blood (test code = Blood) Negative Specific Aurora (test code = Specific Aurora) 1.020 Ketone (test code = Ketone) Moderate Bilirubin (test code = Bilirubin) Moderate Glucose (test code = Glucose) Negative Appearance (test code = Appearance) Clear Color (test code = Color) Yellow [facility] HospitalUrinalysis macro (dipstick) panel - [id number] 11:38:32* Test Item Value Reference Range Interpretation Comme nts Leukocytes (test code = Leukocytes) Negative Nitrite (test code = Nitrite) negative Urobilinogen (test code = Urobilinogen) 1 Protein (test code = Protein) 30 pH (test code = pH) 6.0 Blood (test code = Blood) Negative Specific Aurora (test code = Specific Aurora) 1.020 Ketone (test code = Ketone) Moderate Bilirubin (test code = Bilirubin) Moderate Glucose (test code = Glucose) Negative Appearance (test code = Appearance) Clear Color (test code = Color) Yellow [facility] HospitalBacteria identified in Urine by [id number] 02:32:00* Test Item Value Reference Range Interpretation Comme nts Bacteria identified in Urine by Culture (test code = 630-4) no growth after 2 days [facility] HospitalUrinalysis macro (dipstick) panel - [id number] 09:54:51* Test Item Value Reference Range Interpretation Comme nts Leukocytes (test code = Leukocytes) Trace Nitrite (test code = Nitrite) negative Urobilinogen (test code = Urobilinogen) .2 Protein (test code = Protein) Trace pH (test code = pH) 7.0 Blood (test code = Blood) Negative Specific Aurora (test code = Specific Aurora) 1.025 Ketone (test code = Ketone) Negative Bilirubin (test code = Bilirubin) Negative Glucose (test code = Glucose) Negative Appearance (test code = Appearance) Clear Color (test code = Color) Yellow [facility] HospitalUrinalysis macro (dipstick) panel - [id number] 09:54:51* Test Item Value Reference Range Interpretation Comme nts Leukocytes (test code = Leukocytes) Trace Nitrite (test code = Nitrite) negative Urobilinogen (test code = Urobilinogen) .2 Protein (test code = Protein) Trace pH (test code = pH) 7.0 Blood (test code = Blood) Negative Specific Aurora (test code = Specific Aurora) 1.025 Ketone (test code = Ketone) Negative Bilirubin (test code = Bilirubin) Negative Glucose (test code = Glucose) Negative Appearance (test code = Appearance) Clear Color (test code = Color) Yellow [facility] papilloma virus genotype [Identifier] in Unspecified specimen by Probe and target amplification [id number] 00:00:00 * Test Item Value Reference Range Interpretation Comme nts HPV type-detect 3.0 by next gen sequencing (reflex to HPV-16 risk assessment status) (test code = HPV type-detect 3.0 by next gen sequencing (reflex to HPV-16 risk assessment status)) not detected [facility] papilloma virus genotype [Identifier] in Unspecified specimen by Probe and target amplification [id number] 00:00:00 * Test Item Value Reference Range Interpretation Comme nts HPV type-detect 3.0 by next gen sequencing (reflex to HPV-16 risk assessment status) (test code = HPV type-detect 3.0 by next gen sequencing (reflex to HPV-16 risk assessment status)) not detected [facility], IG + reflex HPV if [id number] 00:00:00* Test Item Value Reference Range Interpretation Comme nts General categories [interpre tation] of Cervical or vaginal smear or scraping by Cyto stain (test code = 94692-8) abnormal A [facility], IG + reflex HPV if [id number] 00:00:00* Test Item Value Reference Range Interpretation Comme nts General categories [interpre tation] of Cervical or vaginal smear or scraping by Cyto stain (test code = 08773-2) abnormal A [facility] HospitalChlamydia trachomatis+Neisseria gonorrhoeae DNA [Presence] in Unspecified specimen by Probe and target amplification method 2019-05-19 00:00:00* Test Item Value Reference Range Interpretation Comme nts chlamydia trachomatis by giovanny l-time PCR (reflex to azithromycin resistance by pyrosequencing) (test code = chlamydia trachomatis by real-time PCR (reflex to azithromycin resistance by pyrosequencing)) negative neisseria gonorrhoeae by giovanny l-time PCR (reflex to antibiotic resistance by molecular analysis) (test code = neisseria gonorrhoeae by real-time PCR (reflex to antibiotic resistance by molecular analysis)) negative [facility] HospitalChlamydia trachomatis+Neisseria gonorrhoeae DNA [Presence] in Unspecified specimen by Probe and target amplification method 2019-05-19 00:00:00* Test Item Value Reference Range Interpretation Comme nts chlamydia trachomatis by giovanny l-time PCR (reflex to azithromycin resistance by pyrosequencing) (test code = chlamydia trachomatis by real-time PCR (reflex to azithromycin resistance by pyrosequencing)) negative neisseria gonorrhoeae by giovanny l-time PCR (reflex to antibiotic resistance by molecular analysis) (test code = neisseria gonorrhoeae by real-time PCR (reflex to antibiotic resistance by molecular analysis)) negative [facility] HospitalUr[facility]ysis macro (dipstick) panel - [id number] 08:29:00* Test Item Value Reference Range Interpretation Comme nts Leukocytes (test code = Leukocytes) Negative Nitrite (test code = Nitrite) negative Urobilinogen (test code = Urobilinogen) .2 Protein (test code = Protein) Negative pH (test code = pH) 6.5 Blood (test code = Blood) Negative Specific Aurora (test code = Specific Aurora) 1.005 Ketone (test code = Ketone) Negative Bilirubin (test code = Bilirubin) Negative Glucose (test code = Glucose) Negative Appearance (test code = Appearance) Clear Color (test code = Color) Yellow [facility] HospitalUr[facility]ysis macro (dipstick) panel - [id number] 08:29:00* Test Item Value Reference Range Interpretation Comme nts Leukocytes (test code = Leukocytes) Negative Nitrite (test code = Nitrite) negative Urobilinogen (test code = Urobilinogen) .2 Protein (test code = Protein) Negative pH (test code = pH) 6.5 Blood (test code = Blood) Negative Specific Aurora (test code = Specific Aurora) 1.005 Ketone (test code = Ketone) Negative Bilirubin (test code = Bilirubin) Negative Glucose (test code = Glucose) Negative Appearance (test code = Appearance) Clear Color (test code = Color) Yellow [facility] HospitalCB W Auto Differential panel - [id number] 01:06:00 * Test Item Value Reference Range Interpretation Comme nts white blood count (test code = white blood count) 7.5 K/uL 4.0-11.5 red blood count (test code = red blood count) 4.63 M/uL 3.80-5.20 Hemoglobin [Mass/volume] in Blood (test code = 718-7) 12.2 g/dL 10.5-15.7 hematocrit (test code = hematocrit) 38.4 % 34.0-50.0 Erythrocyte mean corpuscular volume [Entitic volume] (test code = 91698-8) 83.0 fL 78-98 Erythrocyte mean corpuscular hemoglobin [Entitic mass] (test code = 01180-2) 26.3 pg 26.2-33.4 mean corpuscular HGB conc (t est code = mean corpuscular HGB conc) 31.7 g/dL 31.5-36.2 red cell distribution width (test code = red cell distribution width) 12.2 % 11.5-15.5 Platelets [#/volume] in Bloo d (test code = 43460-1) 264 K/uL 137-338 Platelet mean volume [Entiti c volume] in Blood (test code = 27541-9) 6.6 fL 8.4-11.8 L Neutrophils.band form/100 leukocytes in Blood (test code = 97015-5) 67.9 % 44.4-80.1 Lymphocytes/100 leukocytes i n Body fluid (test code = 86759-6) 20.5 % 10.0-50.0 Monocytes/100 leukocytes in Blood by Automated count (test code = 5905-5) 7.9 % 3.6-12.0 Eosinophils/100 leukocytes i n Blood by Automated count (test code = 713-8) 3.0 % 0.0-5.4 Basophils/100 leukocytes in Unspecified specimen (test code = 07049-1) 0.8 % 0.0-0.79 [facility] Groupdifferential panel, [id number] 01:06:00 NeutrophilsBandLymphocyteMonocytePlatelet EstimateMatagoa [facility]sel[facility] GroupRubella virus IgG Ab [Titer] in [id number] 01:06:00* Test Item Value Reference Range Interpretation Comme nts Rubella virus IgG Ab [Units/volume] in Serum by Immunoassay (test code = 5334-8) 38.74 [IU]/mL [facility] GroupABO & Rh group [Type] in [id number] 01:06:00* Test Item Value Reference Range Interpretation Comme nts Rh [Type] in Blood (test cod e = 12112-7) 4+ ABO and Rh group panel - Blo od (test code = 07683-6) A positive [facility] GroupBlood group antibody screen [Presence] in Serum or Plasma 2019-04-19 01:06:00* Test Item Value Reference Range Interpretation Comme nts Blood group antibody screen [Presence] in Serum or Plasma (test code = 890-4) negative [facility] GroupHIV 1+2 Ab [Presence] in [id number] 01:06:00HIV P24 AgHIV-1/2 AbMatagogulfport behavioral health system Medical GroupBacteria identified in Urine by Culture 2019-04-19 01:06:00* Test Item Value Reference Range Interpretation Comme nts Bacteria identified in Urine by Culture (test code = 630-4) no growth at 48 hrs. [facility] GroupReagin Ab [Presence] in Serum by [id number] 01:06:00* Test Item Value Reference Range Interpretation Comme nts Reagin Ab [Presence] in Seru m by RPR (test code = 98380-0) nonreactive nonreactive [facility] GroupHepatitis B virus surface Ag [Presence] in Serum 2019-04-19 01:05:00* Test Item Value Reference Range Interpretation Comme nts .hepatitis B surface antigen (test code = .hepatitis B surface antigen) negative negative [facility]
[2023-10-06 10:24] LABS: Absolute Lymphocytes (CBC) 0.9 K/uL (0.7-4.9); Hematocrit 40.2 % (36.0-45.0); Lymphocytes % 16.6 % (15.3-44.8); MCV 83.7 fL (80-100); MPV 7.6 fL (7.6-11.3); Platelets 235 thou/uL (152-406)
[2023-10-06] MEDS ORDERED: FAMOTIDINE 20 MG/2 ML VIAL IV ONE (10:34)
[2023-10-06] MEDS ORDERED: ONDANSETRON 4 MG/2 ML VIAL ONE (10:34)
[2023-10-06] MEDS ORDERED: NA CHLORIDE 0.9% 1,000 ML ONE (10:34)
[2023-10-06] MEDS ORDERED: MAGNES/ALUMIN/SIMET 30ML UCUP ONE (10:34)
[2023-10-06 10:39] LABS: Albumin 3.5 g/dL (3.4-5.0); Bilirubin Total 0.4 mg/dL (0.2-1.0); Potassium 3.8 mEq/L (3.5-5.1); Protein, Total 7.7 g/dL (6.4-8.2)
--- NOTE | 2023-10-06 11:38 | RAD REPORT ---
EXAM DESCRIPTION: CT - Abdomen Pelvis W Contrast - 10/06/2023 11:02 am CLINICAL HISTORY: Abdominal pain COMPARISON: 2019 TECHNIQUE: Computed axial tomography of the abdomen pelvis was obtained. 100 cc Isovue-300 was admin istered intravenously. Oral contrast was not requested which limits evaluation of bowel and appendix All CT scans are performed using dose optimization technique as appropriate and may include automated exposure control or mA/KV adjustment according to patient size. FINDINGS: Cholecystectomy The liver, spleen, pancreas, and adrenals appear unremarkable. Extrarenal pelves. No renal abnormality There is no evidence of diverticulitis. Normal appendix 2 centimeter irregularly-shaped left ovarian cyst without significant free fluid. No followup imaging recommended Increased density throughout the bladder presumably secondary to prior imaging and should be correlat ed clinically Mild bladder wall thickening Small umbilical hernia IMPRESSION: 2 centimeter irregularly-shaped left ovarian cyst may have recently ruptured. No signifi cant free fluid
--- NOTE | 2023-10-06 11:41 | RAD REPORT ---
EXAM DESCRIPTION: [facility] Single View10/06/2023 10:58 am CLINICAL HISTORY: Chest pain COMPARISON: none FINDINGS: The lungs appear clear of acute infiltrate. The heart is normal size IMPRESSION: No acute abnormalities displayed
[2023-10-06 12:57] LABS: Specific Gravity > 1.030 (1.005-1.030)
[2023-10-06 13:07] LABS: Urine Bacteria None Seen /HPF (<20); Urine Bilirubin NEGATIVE (Negative); Urine Blood Negative (Negative); Urine Clarity Clear (Clear); Urine Color Light-Yellow (Yellow); Urine Glucose NEGATIVE (Negative); Urine Mucus Slight /HPF (None Seen); Urine Protein NEGATIVE (Negative); Urine RBC <5 /HPF (None Seen); Urine Urobilinogen 1+ (Normal)
[2023-10-06 13:09] LABS: Specific Gravity > 1.030 (1.005-1.030)
--- NOTE | 2023-10-06 13:11 | ER ---
Nurse's Notes [facility] Name: Melody Maldonado Age: 28 yrs Sex: Female : 1995 Arrival Date: 10/06/2023 Time: 09:24 Bed 13 Private MD: Diagnosis: Abdominal pain, unspecified Presentation: 10/06 09:48 Chief complaint: Patient states: past few days i've had RLQ pain and pain in my chest , iw has bad nausea and vomiting. Coronavirus screen: Client presents with at least one sign or symptom that may indicate coronavirus-19. Ebola Screen: Patient negative for fever greater than or equal to 101.5 degrees Fahrenheit, and additional compatible Ebola Virus Disease symptoms Patient denies exposure to infectious person. Patient denies travel to an Ebola-affected area in the 21 days before illness onset. No symptoms or risks identified at this time. Initial Sepsis Screen: Does the patient meet any 2 criteria? No. Patient's initial sepsis screen is negative. Does the patient have a suspected source of infection? No. Patient's initial sepsis screen is negative. Risk Assessment: Do you want to hurt yourself or someone else? Patient reports no desire to harm self or others. Onset of symptoms was October 04, 2023. 09:48 Method Of Arrival: Ambulatory iw 09:48 Acuity: ERICH 3 iw Historical: - Allergies: 09:49 Latex; iw - PMHx: 09:49 Pancreatitis; iw - Immunization history:: Adult Immunizations up to date. - Social history:: Smoking status: unknown. Screenin:10 [facility] ED Fall Risk Assessment (Adult) Score/Fall Risk Level 0 - 2 = Low Risk. Abuse eh3 screen: Denies threats or abuse. Denies injuries from another. Nutritional screening: No deficits noted. Tuberculosis screening: No symptoms or risk factors identified. Assessment: 10:10 General: Appears in no apparent distress. uncomfortable, Behavior is calm, cooperative, eh3 appropriate for age. Pain: Complains of pain in chest and abdomen Pain does not radiate. Pain began suddenly, 2-3 days ago. Neuro: Level of Consciousness is awake, alert, obeys commands, Oriented to person, place, time, situation. Cardiovascular: Capillary refill < 3 seconds Patient's skin is warm and dry. Rhythm is sinus rhythm. Respiratory: Airway is patent Respiratory effort is even, unlabored, Respiratory pattern is regular, symmetrical. GI: Abdomen is round non-distended. Derm: Skin is pink, warm \T\ dry. Musculoskeletal: Circulation, motion, and sensation intact. 10:30 Reassessment: Patient appears in no apparent distress at this time. Patient and/or eh3 family updated on plan of care and expected duration. Pain level reassessed. Patient is alert, oriented x 3, equal unlabored respirations, skin warm/dry/pink. 11:30 Reassessment: Patient appears in no apparent distress at this time. Patient and/or eh3 family updated on plan of care and expected duration. Pain level reassessed. Patient is alert, oriented x 3, equal unlabored respirations, skin warm/dry/pink. 12:30 Reassessment: Patient appears in no apparent distress at this time. Patient and/or eh3 family updated on plan of care and expected duration. Pain level reassessed. Patient is alert, oriented x 3, equal unlabored respirations, skin warm/dry/pink. Vital Signs: 09:49 BP 115 / 75; Pulse 75; Resp 16; Pulse Ox 99% on R/A; iw 10:30 BP 104 / 65; Pulse 75; Resp 16; Pulse Ox 100% on R/A; eh3 11:30 BP 113 / 69; Pulse 86; Resp 18; Pulse Ox 100% on R/A; eh3 ED Course: 09:26 Patient arrived in ED. mr 09:39 Juan Pablo Campos MD is Attending Physician. ec2 09:49 Triage completed. iw 10:10 Patient maintains SpO2 saturation greater than 95% on room air. eh3 10:10 Patient has correct armband on for positive identification. Bed in low position. Call eh3 light in reach. Side rails up X2. Provided Education on: use of call knight. Client placed on continuous cardiac and pulse oximetry monitoring. NIBP monitoring applied. 10:15 Antionette Browne, RD is Primary Nurse. eh3 10:28 Inserted saline lock: 22 gauge in right antecubital area, using aseptic technique. ds4 Blood collected. 11:00 CXR XRAY In Process Unspecified. EDMS 11:03 CT Abd/Pelvis - IV Contrast Only In Process Unspecified. EDMS 13:00 No provider procedures requiring assistance completed. IV discontinued, intact, eh3 bleeding controlled, No redness/swelling at site. Pressure dressing applied. Administered Medications: 10:20 Drug: NS 0.9% IV 1000 ml IV at 1 bolus Per protocol; 1000 mL bolus Route: IV; Rate: 1 eh3 bolus; Site: right antecubital; 11:30 Follow up: IV Status: Completed infusion; IV Intake: 1000ml eh3 10:20 Drug: Ondansetron IVP 4 mg IVP once; over 2 minutes Route: IVP; Site: right antecubital;eh3 11:00 Follow up: Response: No adverse reaction eh3 10:20 Drug: Famotidine IVP 10 mg IVP once; dilute with 10 mL 0.9% NaCl; give over 2 minutes eh3 Route: IVP; Site: right antecubital; 11:00 Follow up: Response: No adverse reaction eh3 10:20 Drug: Alum-Mag Hydroxide-Simeth PO Suspension (200 mg-200 mg-20 mg/5 mL) 30 ml PO once eh3 Route: PO; 11:00 Follow up: Response: No adverse reaction eh3 Medication: 13:00 VIS not applicable for this client. eh3 Intake: 11:30 IV: 1000ml; Total: 1000ml. eh3 Outcome: 13:10 Discharge ordered by . ec2 13:30 Discharged to home ambulatory, eh3 13:30 Condition: stable 13:30 Discharge instructions given to patient, Instructed on discharge instructions, follow up and referral plans. medication usage, Demonstrated understanding of instructions, follow-up care, medications, Prescriptions given X 1, 13:42 Patient left the ED. eh3 Signatures: Dispatcher [employer] EDMO Julieta Lopez, Reg Reg mr Nicky Sherman, RN Corwin Romero ds4 Antionette Browne RN RN eh3 Juan Pablo Campos MD MD ec2 Corrections: (The following items were deleted from the chart) 14:04 10:10 Pain: Complains of pain in chest and abdomen Pain does not radiate. Pain began eh3 suddenly, 4 hours ago. eh3
--- NOTE | 2023-10-06 13:11 | EDPHYS ---
Physician Documentation [facility] Name: Melody Maldonado Age: 28 yrs Sex: Female : 1995 Arrival Date: 10/06/2023 Time: 09:24 Bed 13 Private MD: ED Physician Juan Pablo Campos HPI: 10/06 09:54 This 28 yrs old Female presents to ER via Ambulatory with complaints of Chest ec2 Pain, Abdominal Pain, Nausea. 09:54 Patient arrives today for evaluation of abdominal pain with associated chest pain and ec2 nausea. Patient reports that she is been having pain for several days, states that the pain is in the right lower quadrant, is intermittent without specific alleviating or exacerbating factors. Patient reports of associated nausea with vomiting. Reports that she has previous history of and cholecystectomy. Patient reports that she is also having some mid chest pain, denies any exertional component, denies any shortness of breath. Patient reports no diarrhea symptoms, no urinary complaints, no vaginal complaints. Historical: - Allergies: 09:49 Latex; iw - PMHx: 09:49 Pancreatitis; iw - Immunization history:: Adult Immunizations up to date. - Social history:: Smoking status: unknown. ROS: 09:54 Constitutional: as per hpi ec2 Exam: 09:54 Constitutional: GEN: NAD Head: atraumatic Eyes: EOMI Ears: External ears are ec2 normal. CV: regular rate LUNGS: no respiratory distress ABD: non-distended, soft, minimally tender in the right lower quadrant, no guarding, not rigid SKIN: no evidence of rashes MSK: no evidence of trauma NEURO: moves all extremities equally Vital Signs: 09:49 BP 115 / 75; Pulse 75; Resp 16; Pulse Ox 99% on R/A; iw 10:30 BP 104 / 65; Pulse 75; Resp 16; Pulse Ox 100% on R/A; eh3 11:30 BP 113 / 69; Pulse 86; Resp 18; Pulse Ox 100% on R/A; eh3 MDM: 09:48 Patient medically screened. ec2 09:54 Data reviewed: vital signs. ED course: Patient arrives today for evaluation of ec2 abdominal pain with associated nausea and chest pain. Examination remarkable for well-appearing nontoxic individual with reassuring vital signs and abdominal tenderness to palpation in the right lower quadrant. Will obtain lab work, CT scan, chest x-ray as well as EKG. Currently considering process such as appendicitis, pyelonephritis, UTI, kidney stone, ACS, gastritis/reflux. . 10:28 ED course: EKG independently reviewed and interpreted by me, shows normal sinus rhythm, ec2 rate of 75, no acute ST segment elevations, nonconcerning intervals.. 10:46 ED course: Metabolic profile is reassuring, CBC with appropriate blood counts, lipase ec2 within normal ranges. . 11:52 ED course: CT shows ovarian cyst, patient with no pain in the left lower quadrant. ec2 Chest x-ray shows no acute intrathoracic process. On reassessment patient is well-appearing in no acute distress. Will discharge home have follow-up with primary care doctor. Return precautions given. . 13:10 ED course: Urine is noninfectious appearing. Negative for . On reassessment ec2 patient is significantly improved, will discharge home have her follow-up with primary care doctor. . 12 09:54 Order name: CBC with Diff; Complete Time: 10:46 ec2 10/06 09:54 Order name: CMP; Complete Time: 10:46 ec2 10/06 09:54 Order name: Lipase; Complete Time: 10:46 ec2 10/06 09:54 Order name: UAM; Complete Time: 13:09 ec2 10/06 09:54 Order name: Test, Urine; Complete Time: 13:09 ec2 10/06 09:54 Order name: CT Abd/Pelvis - IV Contrast Only; Complete Time: 11:52 ec2 10/06 09:54 Order name: CXR XRAY; Complete Time: 11:52 ec2 10/06 09:54 Order name: EKG; Complete Time: 10:05 ec2 10/06 09:54 Order name: IV Saline Lock; Complete Time: 10:28 ec2 10/06 09:54 Order name: Labs collected and sent; Complete Time: 10:28 ec2 10/06 09:54 Order name: EKG - Nurse/Tech; Complete Time: 10:28 ec2 Administered Medications: 10:20 Drug: NS 0.9% IV 1000 ml IV at 1 bolus Per protocol; 1000 mL bolus Route: IV; Rate: 1 eh3 bolus; Site: right antecubital; 11:30 Follow up: IV Status: Completed infusion; IV Intake: 1000ml eh3 10:20 Drug: Ondansetron IVP 4 mg IVP once; over 2 minutes Route: IVP; Site: right antecubital;eh3 11:00 Follow up: Response: No adverse reaction eh3 10:20 Drug: Famotidine IVP 10 mg IVP once; dilute with 10 mL 0.9% NaCl; give over 2 minutes eh3 Route: IVP; Site: right antecubital; 11:00 Follow up: Response: No adverse reaction eh3 10:20 Drug: Alum-Mag Hydroxide-Simeth PO Suspension (200 mg-200 mg-20 mg/5 mL) 30 ml PO once eh3 Route: PO; 11:00 Follow up: Response: No adverse reaction eh3 Disposition Summary: 10/06/23 13:10 Discharge Ordered Notes: Location: Home ec2 Condition: Stable ec2 Diagnosis - Abdominal pain, unspecified ec2 Followup: ec2 - With: Private Physician - When: - Reason: Re-evaluation by your physician Discharge Instructions: - Discharge Summary Sheet ec2 - Abdominal Pain, Adult ec2 Forms: - Medication Reconciliation Form ec2 - Thank You Letter ec2 - Antibiotic Education ec2 - Prescription Opioid Use ec2 - Patient Portal Instructions ec2 - Leadership Thank You Letter ec2 Prescriptions: - Zofran 4 mg Oral Tablet - take 1 tablet ORAL route every 12 hours As needed; 20 tablet; Refills: 0, ec2 Product Selection Permitted Signatures: Dispatcher [employer] Nicky Do RN RN iw Antionette Browne RN RN 3 Juan Pablo Campos MD MD ec2 Corrections: (The following items were deleted from the chart) 10:05 10:04 Patient medically screened. ec2 ec2
[2023-10-06 13:55] VITALS: O2SAT 100
[2023-10-06 14:01] VITALS: BP 113/69
--- NOTE | 2023-10-11 14:04 | EKG ---
Test Date: 2023-10-06 Test Time: 10:24:45 Supervisor Roving Department: MIN MEASUREMENT RESULTS: Intervals: Rate: 75 TN: 112 QRSD: 70 QT: 386 QTc: 431 [place]: P: 98 TN: 112 QRS: 46 T: 42 INTERPRETIVE STATEMENTS: Normal sinus rhythm Normal ECG No previous ECG available for comparison Electronically Signed On 10-11-23 13:46:29 DYE OPERATOR by Hardik Marin
== END 2023-10-06 13:42 | disposition home or self-care (01) ==
LOC: ER 09:24
DX: R10.9 Unspecified abdominal pain (principal); R07.9 Chest pain, unspecified; R11.0 Nausea; Z91.040 Latex allergy status
CPT/HCPCS: 96361; 93005; 85025; 81001; 36415; 81025; 83690; 80053; 74177; 71045; 96375; 96374; 99285; Q9967; J2405; J7030